=== PATIENT | female | born 1990 | race Asian ===

== ENCOUNTER 2020-10-07 12:06 | Emergency (ER) | payer SELFPAY ==
[2020-10-07] MEDS ORDERED: Dexamethasone 10 MG/ML SDV IVPUSH ONE (12:28)
[2020-10-07] MEDS ORDERED: Sodium Chloride 0.9% 2.5 ML Syringe FLUSH PRN (12:28)
[2020-10-07] MEDS ORDERED: Sodium Chloride 0.9% 10 ML Syringe FLUSH PRN (12:28)
[2020-10-07] MEDS ORDERED: Lactated Ringers 500 ML IV ONE (12:29)
[2020-10-07] MEDS ORDERED: Albuterol HFA 18 Gm Inhaler INH STA (12:31)
--- NOTE | 2020-10-07 13:24 | CR ---
Indication: Shortness of breath, COVID Technique: Chest 1 view Comparison: None Findings/Impression: Normal cardiomediastinal silhouette. Patchy opacity at the right lung base may represent atelectasis or infection. The left lung is clear. No effusion or pneumothorax. Osseous structures intact. Dictated by Serene Diehl MD @ Oct 07 2020 1:22PM Signed by Dr. Serene Diehl @ Oct 07 2020 1:23PM
[2020-10-07] MEDS ORDERED: guaiFENesin/Dextromethorphan 100-10 MG/5 ML Soln 10 ML Cup PO STA ×2 (13:33→13:51)
[2020-10-07 13:44] LABS: BLOOD UREA NITROGEN,BUN 4 mg/dL (7.0-18.0); CARBON DIOXIDE,CO2 25.3 mmol/L (21.0-32.0); CHLORIDE,CL 101 mmol/L (98-107); GLUCOSE RANDOM 95 mg/dL (74-106); POTASSIUM,K 3.5 mmol/L (3.5-5.1); SODIUM,NA 137 mmol/L (136-145)
--- NOTE | 2020-10-07 14:12 | EDM.PDOC ---
ED HPI GENERAL MEDICAL PROBLEM - General Chief Complaint: Respiratory Problem Stated Complaint: COVID POSITIVE Time Seen by Provider: 10/07/20 12:15 - History of Present Illness INITIAL COMMENTS - FREE TEXT/NARRATIVE: CHIEF COMPLAINT(S): Shortness of breath HISTORY OF PRESENT ILLNESS: This is a 30-year-old woman without any significant past medical history who was diagnosed with coronavirus approximately 7 days ago who comes to the emergency department with a chief complaint of shortness of breath. The patient states that for approximately 1 week now she has been experiencing Covid-like symptoms including cough, shortness of breath, and fever. She states that over the last 24 hours she states that her cough has gotten worse especially at night and is experiencing worsening shortness of breath. She states that she checked her pulse oximetry at home and it was in the mid 80s to lower 90s and that she got up out of the bed and felt better after a little bit of walking. She denies any chest pain and states that the last recorded fever was approximately 48 hours ago. She states that she is taking Tylenol, Motrin, and cough syrup [id number]. She denies any history of asthma but states that she may have borderline reactive airway disease. She denies any other medical history. REVIEW OF SYSTEMS: Constitutional: Denies fever, chills. Eyes: Denies eye pain Ears, Nose, Mouth, & Throat: Denies earache Cardiovascular: Denies chest pain Respiratory: Positive for nonproductive cough and shortness of breath. Gastrointestinal: Denies abdominal pain, nausea, vomiting, diarrhea, hematochezia. Genitourinary: Denies dysuria Skin:Denies a rash Neurological: Denies blurred vision Psychiatric: Denies depression PAST MEDICAL HISTORY: As per history of present illness and as reviewed below otherwise noncontributory. SURGICAL HISTORY: As per history of present illness and as reviewed below otherwise noncontributory. LMP: 2 weeks ago SOCIAL HISTORY: As per history of present illness and as reviewed below otherwise noncontributory. FAMILY HISTORY: As per history of present illness and as reviewed below otherwise noncontributory. EXAMINATION OF ORGAN SYSTEMS/BODY AREAS: Constitutional: Blood pressure is 136/85, heart rate 109, respiratory rate 20 with an oxygen saturation 94% on room air. Temperature 35.9 General: Young woman who appears to be in mild amount of respiratory distress. Intermittent coughing Psychiatric: Appropriate mood and affect. Eyes: No scleral icterus or conjunctival erythema ENMT: Moist mucous membranes. No pharyngeal erythema Cardiovascular: Tachycardic but regular no gallops, murmurs, or rubs. Bilateral upper extremity pulses symmetric and intact. No peripheral edema. No JVD. Respiratory: Lungs clear to auscultation bilaterally. No wheezes, rales, or r honchi. Appears to have mild increased work of breathing. No retractions. Speaking in full sentences. Gastrointestinal: Soft, non-tender, non-distended. Normoactive bowel sounds Genitourinary: No suprapubic tenderness Musculoskeletal: Normal range of motion. Skin: No lesions or abrasions. Neurological: Alert, GCS 15 MEDICAL DECISION MAKING AND COURSE IN THE ED WITH INTERPRETATION/REVIEW OF DIAGNOSTIC STUDIES: This is a 30-year-old man with coronavirus diagnosed approximately 7 days ago who comes to the emergency department with worsening cough and shortness of breath who is tachycardic and borderline hypoxic on room air. At this time will obtain a work-up including CBC, CMP, D-dimer, ferritin, and chest x-ray. Will obtain an EKG for screening purposes. We will provide the patient with a 500 cc bolus as the patient has had decreased p.o. intake and provide her with albuterol by MDI and 6 mg of dexamethasone given the pulse oximetry showing percentages in the 80s at home. We will place the patient on cardiac monitoring and pulse oximetry. Laboratory: CBC is unremarkable. D-dimer is elevated at 0.68. CMP reveals mild elevation in AST of 50 otherwise unremarkable. Ferritin is elevated at 557. Twelve-lead EKG interpreted by myself. Normal sinus rhythm at a rate of 99beats per minute. Normal axis. SC interval is 142ms. QRS duration is 81ms. ST segments are normal without elevations or depressions. No Q waves present. Hypertrophy not noted. No prior EKGs in our system interpretation: Normal sinus rhythm The radiological images were viewed by myself along with reading the report from the radiologist. Chest x-ray reveals normal cardiac silhouette with patchy opacity at the right lung base which may represent atelectasis or infection. Under evaluation, the patient's cough improved and she appeared to be more comfortable. I did discuss the results at this time and discussed that I like to get a CT of her chest to evaluate for PE. She was amenable to this plan. The radiological images were viewed by myself along with reading the report from the radiologist. CT thorax with PE protocol does not reveal any acute pulmonary embolism however there is a right lower lobe pneumonia. After the CT I did discuss the imaging with the patient. At this time she continued to remain normotensive and not hypoxic on room air. I discussed that at this time I like to start her on antibiotics for bacterial pneumonia. We will start the patient on cefdinir and azithromycin. I discussed with her that at this time she should continue to take the dexamethasone daily and to complete the course of antibiotics. I discussed that if she were to have any new or worsening symptoms she should return to the emergency department. She did express understanding and was amenable to discharge at this time. DISPOSITION: The patient was discharged home in stable condition. The patient will follow up with PCP within 1 to 2 days CONDITION: Fair PROCEDURES: None FINAL IMPRESSION(S)/DIAGNOSES: 1. Acute right lower lobe pneumonia and likely community-acquired pneumonia 2. Acute coronavirus infection Corey Garrido M.D. chest pressure Pain Score (Numeric/FACES): 3 - Related Data Allergies Allergy/AdvReac Type Severity Reaction Status Date / Time No Known Allergies Allergy Verified 10/07/20 12:12 Home Meds: Home Meds Azithromycin [Zithromax] 250 mg PO DAILY #4 tablet 10/07/20 [Rx] Cefdinir 300 mg PO BID #20 capsule 10/07/20 [Rx] dexAMETHasone [Dexamethasone] 6 mg PO DAILY #9 tablet 10/07/20 [Rx] Past Medical History - Past Health History Medical/Surgical History: Denies Medical/Surgical History - Infectious Disease History Infectious Disease History: Reports: None Social & Family History - Tobacco Use Tobacco Use Status *Q: Never Tobacco User - Caffeine Use Caffeine Use: Reports: Coffee - Recreational Drug Use Recreational Drug Use: No ED ROS GENERAL - Review of Systems Review Of Systems: See Below ED EXAM, GENERAL - Physical Exam Exam: See Below Course - Vital Signs Last Recorded V/S: Last Vital Signs Temp 36.4 C 10/07/20 16:20 Pulse 103 H 10/07/20 16:20 Resp 18 10/07/20 16:20 BP 114/74 10/07/20 16:20 Pulse Ox 95 10/07/20 16:20 - Orders/Labs/Meds Orders: Active Orders 24 hr Category Date Time Status Saline Lock Insert [OM.PC] Stat Oth 10/07/20 12:28 Ordered Labs: Laboratory Tests 10/07/20 10/07/20 10/07/20 Range/Units 12:49 12:49 12:49 WBC 3.14 L (4.0-11.0) K/uL RBC 4.34 (4.30-5.90) M/uL Hgb 13.1 (12.0-16.0) g/dL Hct 39.5 (36.0-46.0) % MCV 91.0 (80.0-98.0) fL MCH 30.2 (27.0-32.0) pg MCHC 33.2 (31.0-37.0) g/dL RDW Std Deviation 41.7 (28.0-62.0) fl RDW Coeff of Shun 12 (11.0-15.0) % Plt Count 152 (150-400) K/uL MPV 9.60 (7.40-12.00) fL Neut % (Auto) 74.5 (48.0-80.0) % Lymph % (Auto) 20.7 (16.0-40.0) % [place] % (Auto) 4.5 (0.0-15.0) % Eos % (Auto) 0.0 (0.0-7.0) % Baso % (Auto) 0.3 (0.0-1.5) % Neut # (Auto) 2.3 (1.4-5.7) K/uL Lymph # (Auto) 0.7 (0.6-2.4) K/uL [place] # (Auto) 0.1 (0.0-0.8) K/uL Eos # (Auto) 0.0 (0.0-0.7) K/uL Baso # (Auto) 0.0 (0.0-0.1) K/uL Nucleated RBC % 0.0 /100WBC Nucleated RBCs # 0 K/uL D-Dimer, Quantitative 0.68 H (0.0-0.50) mg/L FEU Sodium 137 (136-145) mmol/L Potassium 3.5 (3.5-5.1) mmol/L Chloride 101 (98-107) mmol/L Carbon Dioxide 25.3 (21.0-32.0) mmol/L BUN 4 L (7.0-18.0) mg/dL Creatinine 0.8 (0.6-1.0) mg/dL Est Cr Clr Drug Dosing 76.18 mL/min Estimated GFR (MDRD) > 60.0 ml/min Glucose 95 (74-106) mg/dL Calcium 8.7 (8.5-10.1) mg/dL Magnesium 2.1 (1.8-2.4) mg/dL Ferritin (8-252) ng/mL Total Bilirubin 0.5 (0.2-1.0) mg/dL AST 50 H (15-37) IU/L ALT 57 (14-63) IU/L Alkaline Phosphatase 60 (46-116) U/L Total Protein 7.9 (6.4-8.2) g/dL Albumin 4.0 (3.4-5.0) g/dL Globulin 3.9 (2.6-4.0) g/dL Albumin/Globulin Ratio 1.0 (0.9-1.6) 10/07/20 Range/Units 12:49 WBC (4.0-11.0) K/uL RBC (4.30-5.90) M/uL Hgb (12.0-16.0) g/dL Hct (36.0-46.0) % MCV (80.0-98.0) fL MCH (27.0-32.0) pg MCHC (31.0-37.0) g/dL RDW Std Deviation (28.0-62.0) fl RDW Coeff of Shun (11.0-15.0) % Plt Count (150-400) K/uL MPV (7.40-12.00) fL Neut % (Auto) (48.0-80.0) % Lymph % (Auto) (16.0-40.0) % [place] % (Auto) (0.0-15.0) % Eos % (Auto) (0.0-7.0) % Baso % (Auto) (0.0-1.5) % Neut # (Auto) (1.4-5.7) K/uL Lymph # (Auto) (0.6-2.4) K/uL [place] # (Auto) (0.0-0.8) K/uL Eos # (Auto) (0.0-0.7) K/uL Baso # (Auto) (0.0-0.1) K/uL Nucleated RBC % /100WBC Nucleated RBCs # K/uL D-Dimer, Quantitative (0.0-0.50) mg/L FEU Sodium (136-145) mmol/L Potassium (3.5-5.1) mmol/L Chloride (98-107) mmol/L Carbon Dioxide (21.0-32.0) mmol/L BUN (7.0-18.0) mg/dL Creatinine (0.6-1.0) mg/dL Est Cr Clr Drug Dosing mL/min Estimated GFR (MDRD) ml/min Glucose (74-106) mg/dL Calcium (8.5-10.1) mg/dL Magnesium (1.8-2.4) mg/dL Ferritin 557 H (8-252) ng/mL Total Bilirubin (0.2-1.0) mg/dL AST (15-37) IU/L ALT (14-63) IU/L Alkaline Phosphatase (46-116) U/L Total Protein (6.4-8.2) g/dL Albumin (3.4-5.0) g/dL Globulin (2.6-4.0) g/dL Albumin/Globulin Ratio (0.9-1.6) Meds: Medications Discontinued Medications Generic Name Dose Route Start Last Admin Trade Name Freq PRN Reason Stop Dose Admin Albuterol 2 gm 10/07/20 12:31 10/07/20 13:05 Ventolin Hfa INH 10/07/20 12:32 1 puff Q2H STA Administration Azithromycin 500 mg 10/07/20 15:59 10/07/20 16:10 Zithromax PO 10/07/20 16:00 500 mg ONETIME STA Administration Dexamethasone 6 mg 10/07/20 12:28 10/07/20 13:05 Decadron IVPUSH 10/07/20 12:29 6 mg ONETIME ONE Administration Guaifenesin/Dextromethorphan 10 ml 10/07/20 13:51 10/07/20 13:57 Robitussin Dm PO 10/07/20 13:52 10 ml ONETIME STA Administration Lactated Ringer's 500 mls @ 500 mls/hr 10/07/20 12:29 10/07/20 13:06 Ringers, Lactated IV 10/07/20 13:28 500 mls/hr .BOLUS ONE Administration Iopamidol 50 ml 10/07/20 14:29 10/07/20 14:42 Isovue Multipack-370 (76%) IVPUSH 10/07/20 14:30 50 ml ONETIME STA Administration Sodium Chloride 2.5 ml 10/07/20 12:28 10/07/20 13:06 Saline Flush FLUSH 2.5 ml ASDIRECTED PRN Administration Keep Vein Open Sodium Chloride 10 ml 10/07/20 12:28 10/07/20 13:06 Saline Flush FLUSH 10 ml ASDIRECTED PRN Administration Keep Vein Open Departure - Departure Time of Disposition: 16:02 Disposition: Home, Self-Care 01 Condition: Fair Clinical Impression: COVID-19 Pneumonia Qualifiers: Pneumonia type: due to unspecified organism Laterality: right Lung location: lower lobe of lung Qualified Code(s): J18.9 - Pneumonia, unspecified organism - Discharge Information *PRESCRIPTION DRUG MONITORING PROGRAM REVIEWED*: No *COPY OF PRESCRIPTION DRUG MONITORING REPORT IN PATIENT KI: No Prescriptions: Cefdinir 300 mg PO BID #20 capsule dexAMETHasone [Dexamethasone] 6 mg PO DAILY #9 tablet Azithromycin [Zithromax] 250 mg PO DAILY #4 tablet Instructions: COVID-19 Frequently Asked Questions, COVID-19, Community-Acquired Pneumonia, Adult, Prevent the Spread of COVID-19 if You Are Sick - [facility] Referrals: PCP,None [Primary Care Provider] - Forms: ED Department Discharge Additional Instructions: The patient is informed of any results of their evaluation and diagnostic workup and all questions are answered. They are given discharge instructions and return precautions. The patient is stable for discharge. The patient states they understand and agree with the plan and that they will return if their symptoms get worse or if they have any new concerns. The following information is given to patients seen in the emergency department who are being discharged to home. This information is to outline your options for follow-up care. We provide all patients seen in our emergency department with a follow-up referral. The need for follow-up, as well as the timing and circumstances, are variable depending upon the specifics of your emergency department visit. If you don't have a primary care physician on staff, we will provide you with a referral. We always advise you to contact your personal physician following an emergency department visit to inform them of the circumstance of the visit and for follow-up with them and/or the need for any referrals to a consulting specialist. The emergency department will also refer you to a specialist when appropriate. This referral assures that you have the opportunity for follow-up care with a specialist. All of these measure are taken in an effort to provide you with optimal care, which includes your follow-up. Under all circumstances we always encourage you to contact your private physician who remains a resource for coordinating your care. When calling for follow-up care, please make the office aware that this follow-up is from your recent emergency room visit. If for any reason you are refused follow-up, please contact the [facility] Emergency Department at and asked to speak to the emergency department charge nurse. Today your evaluated in the emergency department on an emergency basis. You were found to have a right lower lung pneumonia. Please take antibiotics as prescribed, use albuterol every 4 hours as needed, and dexamethasone. Please return to the emergency department if you have any new or worsening symptoms. Please follow-up with your primary care physician when within 2 to 3 days. [facility] - Primary Care [address] [place], [place] [id number] [address] [address] Sepsis Event Note (ED) - Evaluation Sepsis Screening Result: Possible Sepsis Risk - Focused Exam Vital Signs: Vital Signs Temp Pulse Resp BP Pulse Ox 10/07/20 16:20 36.4 C 103 H 18 114/74 95 10/07/20 13:58 102 H 20 99 10/07/20 13:10 101 H 20 121/80 95 10/07/20 12:13 35.9 C L 109 H 20 136/85 94 L - My Orders Last 24 Hours: My Active Orders 10/07/20 12:28 Saline Lock Insert [OM.PC] Stat - Assessment/Plan Last 24 Hours: My Active Orders 10/07/20 12:28 Saline Lock Insert [OM.PC] Stat
[2020-10-07] MEDS ORDERED: Iopamidol 755 MG/ML 500 ML Multipack Bottle IVPUSH STA (14:29)
--- NOTE | 2020-10-07 15:42 | CT ---
INDICATION: Shortness of breath, elevated D-dimer and positive COVID-19. COMPARISON: Chest radiograph from today. TECHNIQUE: CT examination of the chest was performed with the uneventful intravenous administration of 50 cc of Isovue 370 while 1 and 3 mm thick axial sections were obtained through the pulmonary arteries. Please note that all CT scans at this facility use dose modulation, iterative reconstruction, and/or weight-based dosing when appropriate to reduce radiation dose to as low as reasonably achievable. FINDINGS: : There is no sign of pulmonary embolism, with normal enhancement and branching of the pulmonary arteries. There is dense consolidation of the basilar segments of the right lower lobe, consistent with right lower lobe pneumonia. There is mild patchy infiltrates scattered throughout the basilar segments of the left lower lobe, nonspecific, but consistent with additional pneumonia. There is mild patchy infiltrate in the posterior aspect of both upper lobes, consistent with pneumonia. The findings are not strongly suggestive of COVID-19, but certainly could be from COVID-19. There is no sign of mediastinal or hilar mass or adenopathy. The heart is normal in appearance for the patient`s age, as are the aorta and other ascending great vessels. There is no sign of supraclavicular or axillary mass or adenopathy. The visualized superior liver is low in density from fatty infiltration and is otherwise normal in appearance. The visualized superior spleen is normal in appearance. The osseous structures are normal in appearance for the patient`s age. IMPRESSION: No sign of pulmonary embolism. Dense consolidation of the basilar segments of the right lower lobe most consistent with bacterial pneumonia. Patchy consolidation throughout the basilar segments of the left lower lobe, with additional patchy consolidation of the dependent portions of both upper lobes. Nonspecific, but suggestive of multifocal pneumonia. The findings are not typical of COVID-19, but COVID-19 cannot be excluded. Fatty infiltration of the liver. Please note that all CT scans at this facility use dose modulation, iterative reconstruction, and/or weight-based dosing when appropriate to reduce radiation dose to as low as reasonably achievable. Dictated by Kumar Jane MD @ Oct 07 2020 3:31PM Signed by Dr. Kumar Jane @ Oct 07 2020 3:40PM
[2020-10-07] MEDS ORDERED: Azithromycin 250 MG Tab PO STA (15:59)
== END 2020-10-07 16:20 | disposition home or self-care (01) ==
LOC: MW.ED 12:06
DX: U07.1 COVID-19 (principal); J12.89 Other viral pneumonia
CPT/HCPCS: 36415; 71045; 71275; 80053; 82728; 83735; 85025; 85379; 93005; 96374; 99285; A9270; J1100; J7120; Q9967; 93010; 99283; J3535-GY

== ENCOUNTER 2020-10-09 21:57 | Inpatient (IN) | payer SELFPAY ==
[2020-10-09] MEDS ORDERED: Albuterol HFA 18 Gm Inhaler ONE (22:15)
[2020-10-09] MEDS ORDERED: Albuterol 6.7 GM Inhaler INH ONE (22:16)
--- NOTE | 2020-10-09 22:24 | EDM.PDOC ---
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 2 days later she had some muscle aches and fatigue. She had shortness of breath starting days ago. That is increased since. She was seen is a patient 3 days ago and had infiltrates on her x-rays and CT but no blood clot. She arrived today with an oxygen saturation of 78% which is profoundly low. It required 100% nonrebreather to get her up to 92%. She still feels mildly short of breath. The patient is on dexamethasone at home and she also is using an inhaler but without a chamber. The patient has no history of respiratory trouble asthma bronchitis or COPD. Review of systems: As per history of present illness and below otherwise all systems reviewed and negative. Past medical history: As per history of present illness and as reviewed below otherwise noncontributory. Surgical history: As per history of present illness and as reviewed below otherwise noncontributory. Social history: No reported history of drug or alcohol abuse. Family history: As per history of present illness and as reviewed below otherwise noncontributory. Physical exam: Constitutional - well developed, well-nourished and in no acute distress HEENT - normocephalic, no evidence of trauma - external nose and mouth normal - no mass in neck and no JVD - mucosae moist EYES - full EOM, PERRL, no icterus - no evidence of inflammation, injection, or drainage Respiratory -minimal respiratory distress, equal bilateral expansion, lungsbreath sounds with rales in the bases Cardiovascular - Regular Rhythm with S1 and S2 appreciated and no murmur, gallop or rub. GI - abdomen soft without distension or organomegaly - normal bowel sounds - no guard or rebound Musculoskeletal no gross deformity of long bones or joints - no tenderness, swelling or edema Neurologic - Alert and oriented times four - CN II-XII grossly intact - motor sensory and coordination symmetrically normal Psychiatric - appropriate mood and affect with normal thought content Hematologic - No petechiae or purpura - mucosa appropriate color and sclera not pale - normal nail bed color and refill Integument - no rash or evidence of trauma - normal turgor Diagnostics: [] Therapeutics: [] Impression: [] Plan: [] Definitive disposition and diagnosis as appropriate pending reevaluation and review of above. lungs Pain Score (Numeric/FACES): 4 - Related Data Allergies Allergy/AdvReac Type Severity Reaction Status Date / Time No Known Allergies Allergy Verified 10/07/20 12:12 Home Meds: Home Meds Azithromycin [Zithromax] 250 mg PO DAILY #4 tablet 10/07/20 [Rx] Cefdinir 300 mg PO BID #20 capsule 10/07/20 [Rx] dexAMETHasone [Dexamethasone] 6 mg PO DAILY #9 tablet 10/07/20 [Rx] Past Medical History - Past Health History Medical/Surgical History: Denies Medical/Surgical History - Infectious Disease History Infectious Disease History: Reports: None Social & Family History - Caffeine Use Caffeine Use: Reports: Coffee ED ROS GENERAL - Review of Systems Review Of Systems: Comprehensive ROS is negative, except as noted in HPI. ED EXAM, GENERAL - Physical Exam Exam: See Below Free Text/Narrative:: My physical exam is in the HPI Course - Vital Signs Text/Narrative:: Patient had already been taking steroids and using an inhaler at home. She was using the chamber. We gave her 2 puffs with the chamber and try to wean her down to 5 L of nasal cannula but she did not tolerated and required nonrebreather to go back up to the satisfactory saturation. Discussed with and admitted to the hospital. Our Covid treatment protocol consulted and medications ordered. Orders placed for bed Dr. Harrell will assume care of the patient. Last Recorded V/S: Last Vital Signs Temp 36.4 C 10/09/20 22:16 Pulse 114 H 10/09/20 22:16 Resp 22 H 10/09/20 22:16 BP 134/86 10/09/20 22:16 Pulse Ox 93 L 10/09/20 22:16 - Orders/Labs/Meds Orders: Active Orders 24 hr Category Date Time Status RT Post Treatment Assessment [RC] Click to Edit Care 10/09/20 22:17 Active RT Pre-Treatment Assessment [RC] Click to Edit Care 10/09/20 22:17 Active Meds: Medications Discontinued Medications Generic Name Dose Route Start Last Admin Trade Name Freq PRN Reason Stop Dose Admin Albuterol 18 gm 11/26/20 22:16 10/09/20 22:22 Proventil Hfa INH 10/09/20 22:17 1 puff ONETIME ONE Administration Albuterol Confirm 10/09/20 22:15 10/09/20 22:21 Ventolin Hfa Administered 10/09/20 22:16 Not Given Dose 18 gm .ROUTE .STK-MED ONE Dexamethasone 10 mg 10/09/20 22:31 Decadron IVPUSH 10/09/20 22:32 ONETIME ONE Remdesivir 200 mg/ Sodium 250 mls @ 250 mls/hr 10/09/20 22:33 Chloride IV 10/09/20 22:34 ONETIME ONE Departure - Departure Time of Disposition: 22:52 Disposition: Admitted As Inpatient 64 Condition: Good, Fair Clinical Impression: Bilateral pneumonia, COVID-19 - Discharge Information Referrals: PCP,None [Primary Care Provider] - Forms: ED Department Discharge Sepsis Event Note (ED) - Focused Exam Vital Signs: Vital Signs Temp Pulse Resp BP Pulse Ox 10/09/20 22:16 36.4 C 114 H 22 H 134/86 93 L - My Orders Last 24 Hours: My Active Orders 10/09/20 22:17 RT Post Treatment Assessment [RC] Click to Edit RT Pre-Treatment Assessment [RC] Click to Edit - Assessment/Plan Last 24 Hours: My Active Orders 10/09/20 22:17 RT Post Treatment Assessment [RC] Click to Edit RT Pre-Treatment Assessment [RC] Click to Edit
[2020-10-09] MEDS ORDERED: Dexamethasone 10 MG/ML SDV IVPUSH ONE (22:31)
[2020-10-09] MEDS ORDERED: REMDESIVIR 200 MG in Sodium Chloride 0.9% 250 ML IV ONE (22:33)
[2020-10-09] MEDS ORDERED: Ondansetron 4 MG/2 ML SDV IVPUSH PRN (23:59)
[2020-10-10 00:43] LABS: BLOOD UREA NITROGEN,BUN 7 mg/dL (7.0-18.0); CARBON DIOXIDE,CO2 25.4 mmol/L (21.0-32.0); CHLORIDE,CL 102 mmol/L (98-107); GLUCOSE RANDOM 132 mg/dL (74-106); POTASSIUM,K 3.7 mmol/L (3.5-5.1); SODIUM,NA 139 mmol/L (136-145)
[2020-10-10] MEDS ORDERED: Phosphorus #1 250 MG Tab PO ONE (00:53)
[2020-10-10] MEDS ORDERED: Albuterol/Ipratropium 3.0-0.5 MG/3 ML Neb Soln NEB PRN (01:13)
[2020-10-10] MEDS: Albuterol/Ipratropium 4 GM Inhalation Spray INH SCH ×7 (01:27→23:53)
[2020-10-10] MEDS: Levofloxacin/Dextrose 5%-Water 750 MG in Premix Bag 1 BAG IV SCH (01:28)
[2020-10-10 06:50] LABS: BLOOD UREA NITROGEN,BUN 7 mg/dL (7.0-18.0); CHLORIDE,CL 104 mmol/L (98-107); GLUCOSE RANDOM 142 mg/dL (74-106); POTASSIUM,K 3.6 mmol/L (3.5-5.1); SODIUM,NA 140 mmol/L (136-145)
--- NOTE | 2020-10-10 07:43 | PCM.HP.2 ---
<LouVahid funez - Last Filed: 10/10/20 14:50> H&P History of Present Illness - General Date of Service: 10/10/20 Admit Problem/Dx: Admission Diagnosis/Problem Admission Diagnosis/Problem Bilateral pneumonia - History of Present Illness Initial Comments - Free Text/Narative: 30 yr old female admitted for COVID infection which was diagnosed days prior. Patient initially felt fine but as time progressed developed muscle aches and fatigue whioch proressed to significant shortness of breath which has increased. Patient was seen by a medical provider 3 days ago and had a c-xray performed whi ch showed lung infiltrates. Patient presented to the ED with an oxygen saturation of 78% and was placed on 100% nonrebreather, which raised o2 sats to 92%. Patient on admission states SOB. Patients o2 saturations go down significancy with movement and soeaking. O2 sats stably with prone positioning and rest. Patient has been taking dexamethasone at home and has also been using an inhaler. PMH negative for asthma, copd. No other PMH noted lungs Pain Score (Numeric/FACES): 4 - Related Data Allergies/Adverse Reactions: Allergies Allergy/AdvReac Type Severity Reaction Status Date / Time No Known Allergies Allergy Verified 10/10/20 00:09 Home Medications: Home Meds Azithromycin [Zithromax] 250 mg PO DAILY #4 tablet 10/07/20 [Rx] Cefdinir 300 mg PO BID #20 capsule 10/07/20 [Rx] dexAMETHasone [Dexamethasone] 6 mg PO DAILY #9 tablet 10/07/20 [Rx] Past Medical History - Past Health History Medical/Surgical History: Denies Medical/Surgical History HEENT History: Reports: None Cardiovascular History: Reports: None Respiratory History: Reports: None Gastrointestinal History: Reports: None Genitourinary History: Reports: None 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 Musculoskeletal History: Reports: None Neurological History: Reports: None Psychiatric History: Reports: None Endocrine/Metabolic History: Reports: None Hematologic History: Reports: None Immunologic History: Reports: None Oncologic (Cancer) History: Reports: None Dermatologic History: Reports: None - Infectious Disease History Infectious Disease History: Reports: Other (See Below) Other Infectious Disease History: COVID - Past Surgical History Head Surgeries/Procedures: Reports: None Social & Family History - Family History Family Medical History: No Pertinent Family History - Tobacco Use Tobacco Use Status *Q: Never Tobacco User Used Tobacco, but Quit: No Second Hand Smoke Exposure: No - Caffeine Use Caffeine Use: Reports: Coffee, Tea - Recreational Drug Use Recreational Drug Use: No H&P Review of Systems - Review of Systems: Review Of Systems: See Below General: Reports: Weakness. Denies: Fever, Chills Pulmonary: Reports: Shortness of Breath, Cough. Denies: Wheezing Cardiovascular: Reports: Dyspnea on Exertion. Denies: Chest Pain, Palpitations Gastrointestinal: Denies: Abdominal Pain, Nausea, Vomiting Neurological: Denies: Confusion, Dizziness, Headache Exam - Exam Exam: See Below - Vital Signs Vital Signs: Last Vital Signs Temp 97.5 F 10/10/20 04:27 Pulse 90 10/10/20 02:00 Resp 20 10/10/20 04:27 BP 122/77 10/10/20 04:27 Pulse Ox 91 L 10/10/20 04:27 Weight: 78.698 kg - Exam General: Alert, Oriented Lungs: Clear to Auscultation, Normal Respiratory Effort Cardiovascular: Regular Rate, Regular Rhythm GI/Abdominal Exam: Normal Bowel Sounds, Soft, Non-Tender Extremities: No Pedal Edema Neuro Extensive - Mental Status: Alert, Oriented x3 - Patient Data Lab Results Last 24 hrs: Laboratory Results - last 24 hr 10/09/20 10/09/20 10/09/20 Range/Units 22:15 22:15 22:15 WBC 7.38 (4.0-11.0) K/uL RBC 4.30 (4.30-5.90) M/uL Hgb 12.9 (12.0-16.0) g/dL Hct 39.4 (36.0-46.0) % MCV 91.6 (80.0-98.0) fL MCH 30.0 (27.0-32.0) pg MCHC 32.7 (31.0-37.0) g/dL RDW Std Deviation 42.4 (28.0-62.0) fl RDW Coeff of Shun 13 (11.0-15.0) % Plt Count 227 (150-400) K/uL MPV 9.70 (7.40-12.00) fL Neut % (Auto) 88.0 H (48.0-80.0) % Lymph % (Auto) 8.5 L (16.0-40.0) % [place] % (Auto) 3.5 (0.0-15.0) % Eos % (Auto) 0.0 (0.0-7.0) % Baso % (Auto) 0.0 (0.0-1.5) % Neut # (Auto) 6.5 H (1.4-5.7) K/uL Lymph # (Auto) 0.6 (0.6-2.4) K/uL [place] # (Auto) 0.3 (0.0-0.8) K/uL Eos # (Auto) 0.0 (0.0-0.7) K/uL Baso # (Auto) 0.0 (0.0-0.1) K/uL Nucleated RBC % 0.0 /100WBC Nucleated RBCs # 0 K/uL D-Dimer, Quantitative 0.78 H (0.0-0.50) mg/L FEU Sodium 139 (136-145) mmol/L Potassium 3.7 (3.5-5.1) mmol/L Chloride 102 (98-107) mmol/L Carbon Dioxide 25.4 (21.0-32.0) mmol/L BUN 7 (7.0-18.0) mg/dL Creatinine 0.8 (0.6-1.0) mg/dL Est Cr Clr Drug Dosing 76.18 mL/min Estimated GFR (MDRD) > 60.0 ml/min Glucose 132 H (74-106) mg/dL Calcium 8.6 (8.5-10.1) mg/dL Phosphorus 2.2 L (2.6-4.7) mg/dL Magnesium 1.9 (1.8-2.4) mg/dL Ferritin (8-252) ng/mL Total Bilirubin 0.4 (0.2-1.0) mg/dL AST 49 H (15-37) IU/L ALT 60 (14-63) IU/L Alkaline Phosphatase 61 (46-116) U/L Lactate Dehydrogenase (81-234) U/L Total Protein 7.9 (6.4-8.2) g/dL Albumin 3.6 (3.4-5.0) g/dL Globulin 4.3 H (2.6-4.0) g/dL Albumin/Globulin Ratio 0.8 L (0.9-1.6) Blood Type 10/09/20 10/09/20 10/10/20 Range/Units 22:15 22:15 00:43 WBC (4.0-11.0) K/uL RBC (4.30-5.90) M/uL Hgb (12.0-16.0) g/dL Hct (36.0-46.0) % MCV (80.0-98.0) fL MCH (27.0-32.0) pg MCHC (31.0-37.0) g/dL RDW Std Deviation (28.0-62.0) fl RDW Coeff of Shun (11.0-15.0) % Plt Count (150-400) K/uL MPV (7.40-12.00) fL Neut % (Auto) (48.0-80.0) % Lymph % (Auto) (16.0-40.0) % [place] % (Auto) (0.0-15.0) % Eos % (Auto) (0.0-7.0) % Baso % (Auto) (0.0-1.5) % Neut # (Auto) (1.4-5.7) K/uL Lymph # (Auto) (0.6-2.4) K/uL [place] # (Auto) (0.0-0.8) K/uL Eos # (Auto) (0.0-0.7) K/uL Baso # (Auto) (0.0-0.1) K/uL Nucleated RBC % /100WBC Nucleated RBCs # K/uL D-Dimer, Quantitative (0.0-0.50) mg/L FEU Sodium (136-145) mmol/L Potassium (3.5-5.1) mmol/L Chloride (98-107) mmol/L Carbon Dioxide (21.0-32.0) mmol/L BUN (7.0-18.0) mg/dL Creatinine (0.6-1.0) mg/dL Est Cr Clr Drug Dosing mL/min Estimated GFR (MDRD) ml/min Glucose (74-106) mg/dL Calcium (8.5-10.1) mg/dL Phosphorus (2.6-4.7) mg/dL Magnesium (1.8-2.4) mg/dL Ferritin 709 H (8-252) ng/mL Total Bilirubin (0.2-1.0) mg/dL AST (15-37) IU/L ALT (14-63) IU/L Alkaline Phosphatase (46-116) U/L Lactate Dehydrogenase 523 H (81-234) U/L Total Protein (6.4-8.2) g/dL Albumin (3.4-5.0) g/dL Globulin (2.6-4.0) g/dL Albumin/Globulin Ratio (0.9-1.6) Blood Type AB POSITIVE 10/10/20 Range/Units 05:52 WBC (4.0-11.0) K/uL RBC (4.30-5.90) M/uL Hgb (12.0-16.0) g/dL Hct (36.0-46.0) % MCV (80.0-98.0) fL MCH (27.0-32.0) pg MCHC (31.0-37.0) g/dL RDW Std Deviation (28.0-62.0) fl RDW Coeff of Shun (11.0-15.0) % Plt Count (150-400) K/uL MPV (7.40-12.00) fL Neut % (Auto) (48.0-80.0) % Lymph % (Auto) (16.0-40.0) % [place] % (Auto) (0.0-15.0) % Eos % (Auto) (0.0-7.0) % Baso % (Auto) (0.0-1.5) % Neut # (Auto) (1.4-5.7) K/uL Lymph # (Auto) (0.6-2.4) K/uL [place] # (Auto) (0.0-0.8) K/uL Eos # (Auto) (0.0-0.7) K/uL Baso # (Auto) (0.0-0.1) K/uL Nucleated RBC % /100WBC Nucleated RBCs # K/uL D-Dimer, Quantitative (0.0-0.50) mg/L FEU Sodium 140 (136-145) mmol/L Potassium 3.6 (3.5-5.1) mmol/L Chloride 104 (98-107) mmol/L Carbon Dioxide 26.0 (21.0-32.0) mmol/L BUN 7 (7.0-18.0) mg/dL Creatinine 0.6 (0.6-1.0) mg/dL Est Cr Clr Drug Dosing 106.46 mL/min Estimated GFR (MDRD) > 60.0 ml/min Glucose 142 H (74-106) mg/dL Calcium 8.4 L (8.5-10.1) mg/dL Phosphorus 3.4 (2.6-4.7) mg/dL Magnesium 2.0 (1.8-2.4) mg/dL Ferritin (8-252) ng/mL Total Bilirubin 0.4 (0.2-1.0) mg/dL AST 36 (15-37) IU/L ALT 47 (14-63) IU/L Alkaline Phosphatase 51 (46-116) U/L Lactate Dehydrogenase (81-234) U/L Total Protein 7.0 (6.4-8.2) g/dL Albumin 3.1 L (3.4-5.0) g/dL Globulin 3.9 (2.6-4.0) g/dL Albumin/Globulin Ratio 0.8 L (0.9-1.6) Blood Type Result Diagrams: 10/09/20 22:15 10/10/20 05:52 Sepsis Event Note - Evaluation Sepsis Screening Result: No Definite Risk - Focused Exam Vital Signs: Vital Signs Temp Pulse Resp BP Pulse Ox 10/10/20 04:27 97.5 F 20 122/77 91 L 10/10/20 02:00 90 18 93 L 10/09/20 23:40 96.8 F L 85 18 117/74 91 L 10/09/20 23:17 96.7 F L 95 22 H 123/81 96 10/09/20 23:00 96.7 F L 96 22 H 122/66 96 10/09/20 22:16 97.6 F 114 H 22 H 134/86 93 L Problem List Initiated/Reviewed/Updated: Yes Orders Last 24hrs: Active Orders 24 hr Category Date Time Status Admission Status [Patient Status] [ADT] Stat ADT 10/09/20 22:50 Active Ambulate [RC] ASDIRECTED Care 10/09/20 23:59 Active Oxygen Therapy [RC] PRN Care 10/09/20 23:59 Active Pulse Oximetry [RC] PRN Care 10/10/20 00:00 Active RT Aerosol Therapy [RC] ASDIRECTED Care 10/10/20 01:13 Active RT Post Treatment Assessment [RC] Click to Edit Care 10/09/20 22:17 Active RT Post Treatment Assessment [RC] Click to Edit Care 10/10/20 00:04 Active RT Pre-Treatment Assessment [RC] Click to Edit Care 10/09/20 22:17 Active RT Pre-Treatment Assessment [RC] Click to Edit Care 10/10/20 00:04 Active VTE/DVT Education [RC] PER UNIT ROUTINE Care 10/09/20 23:59 Active Vital Signs [RC] Q4H Care 10/09/20 23:59 Active Regular Diet [DIET] Diet 10/11/20 Breakfast Active ABO/RH TYPE [BBK] Routine Lab 10/10/20 00:43 Results CBC WITH AUTO DIFF [HEME] AM Lab 10/11/20 05:11 Ordered FRESH FROZEN PLASMA [BBK] Routine Lab 10/10/20 00:43 Results Albuterol/Ipratropium [Combivent Respimat] Med 10/10/20 00:15 Active See Dose Instructions INH Q4H Albuterol/Ipratropium [DuoNeb 3.0-0.5 MG/3 ML] Med 10/10/20 01:13 Active 3 ml NEB Q4HRRT PRN Cholecalciferol (Vitamin D3) [Vitamin D3] Med 10/10/20 09:00 Active 20 mcg PO DAILY Enoxaparin [Lovenox] Med 10/10/20 09:00 Active 40 mg SUBCUT BID Levofloxacin/Dextrose 5%-Water [Levaquin in D5W 750 MG/ Med 10/10/20 00:15 Active 150 ML] 750 mg Premix Bag 1 bag IV Q24H Ondansetron [Zofran] Med 10/09/20 23:59 Active 4 mg IVPUSH Q4H PRN Remdesivir 100 mg Med 10/10/20 09:00 Active Sodium Chloride 0.9% [Normal Saline] 100 ml IV Q24H dexAMETHasone Med 10/10/20 09:00 Active 6 mg PO DAILY Transfuse Fresh Frozen Plasma [COMM] Routine Oth 10/10/20 01:13 Ordered Resuscitation Status Routine Resus Stat 10/09/20 23:59 Ordered Medication Orders Albuterol/Ipratropium (Combivent Respimat) 0 gm INH Q4H [facility] Last Admin: 10/10/20 04:26 Dose: 1 puff Documented by: Admin: 10/10/20 01:27 Dose: 1 puff Documented by: ISABEL Albuterol/Ipratropium (Duoneb 3.0-0.5 Mg/3 Ml) 3 ml NEB Q4HRRT PRN PRN Reason: Shortness of Breath Cholecalciferol (Vitamin D3) 20 mcg PO DAILY [facility] Dexamethasone (Dexamethasone) 6 mg PO DAILY [facility] Enoxaparin Sodium (Lovenox) 40 mg SUBCUT BID [facility] Remdesivir 100 mg/ Sodium (Chloride) 100 mls @ 100 mls/hr IV Q24H [facility] Stop: 10/13/20 09:59 Levofloxacin/Dextrose 750 mg/ (Premix) 150 mls @ 100 mls/hr IV Q24H [facility] Last Admin: 10/10/20 01:28 Dose: 100 mls/hr Documented by: ISABEL Ondansetron HCl (Zofran) 4 mg IVPUSH Q4H PRN PRN Reason: Nausea/Vomiting Assessment/Plan Comment:: COVID-19 infection Remdesivir 100mg QD, dexamethasone 6mg QD, Combivent, encourage prone positioning, incentive spirometry, Lovenox 40mg QD, Levaquin 750mg QD, Convalescent plasma <Neil Gamezoria - Last Filed: 10/10/20 22:52> H&P History of Present Illness - General Admit Problem/Dx: Admission Diagnosis/Problem Admission Diagnosis/Problem Bilateral pneumonia Exam - Vital Signs Vital Signs: Last Vital Signs Temp 37.9 C 10/10/20 20:37 Pulse 90 10/10/20 02:00 Resp 18 10/10/20 20:37 BP 119/78 10/10/20 20:37 Pulse Ox 91 L 10/10/20 20:37 - Patient Data Lab Results Last 24 hrs: Laboratory Results - last 24 hr 10/09/20 10/09/20 10/09/20 Range/Units 22:15 22:15 22:15 WBC 7.38 (4.0-11.0) K/uL RBC 4.30 (4.30-5.90) M/uL Hgb 12.9 (12.0-16.0) g/dL Hct 39.4 (36.0-46.0) % MCV 91.6 (80.0-98.0) fL MCH 30.0 (27.0-32.0) pg MCHC 32.7 (31.0-37.0) g/dL RDW Std Deviation 42.4 (28.0-62.0) fl RDW Coeff of Shun 13 (11.0-15.0) % Plt Count 227 (150-400) K/uL MPV 9.70 (7.40-12.00) fL Neut % (Auto) 88.0 H (48.0-80.0) % Lymph % (Auto) 8.5 L (16.0-40.0) % [place] % (Auto) 3.5 (0.0-15.0) % Eos % (Auto) 0.0 (0.0-7.0) % Baso % (Auto) 0.0 (0.0-1.5) % Neut # (Auto) 6.5 H (1.4-5.7) K/uL Lymph # (Auto) 0.6 (0.6-2.4) K/uL [place] # (Auto) 0.3 (0.0-0.8) K/uL Eos # (Auto) 0.0 (0.0-0.7) K/uL Baso # (Auto) 0.0 (0.0-0.1) K/uL Nucleated RBC % 0.0 /100WBC Nucleated RBCs # 0 K/uL D-Dimer, Quantitative 0.78 H (0.0-0.50) mg/L FEU Sodium 139 (136-145) mmol/L Potassium 3.7 (3.5-5.1) mmol/L Chloride 102 (98-107) mmol/L Carbon Dioxide 25.4 (21.0-32.0) mmol/L BUN 7 (7.0-18.0) mg/dL Creatinine 0.8 (0.6-1.0) mg/dL Est Cr Clr Drug Dosing 76.18 mL/min Estimated GFR (MDRD) > 60.0 ml/min Glucose 132 H (74-106) mg/dL Calcium 8.6 (8.5-10.1) mg/dL Phosphorus 2.2 L (2.6-4.7) mg/dL Magnesium 1.9 (1.8-2.4) mg/dL Ferritin (8-252) ng/mL Total Bilirubin 0.4 (0.2-1.0) mg/dL AST 49 H (15-37) IU/L ALT 60 (14-63) IU/L Alkaline Phosphatase 61 (46-116) U/L Lactate Dehydrogenase (81-234) U/L Total Protein 7.9 (6.4-8.2) g/dL Albumin 3.6 (3.4-5.0) g/dL Globulin 4.3 H (2.6-4.0) g/dL Albumin/Globulin Ratio 0.8 L (0.9-1.6) Blood Type 10/09/20 10/09/20 10/10/20 Range/Units 22:15 22:15 00:43 WBC (4.0-11.0) K/uL RBC (4.30-5.90) M/uL Hgb (12.0-16.0) g/dL Hct (36.0-46.0) % MCV (80.0-98.0) fL MCH (27.0-32.0) pg MCHC (31.0-37.0) g/dL RDW Std Deviation (28.0-62.0) fl RDW Coeff of Shun (11.0-15.0) % Plt Count (150-400) K/uL MPV (7.40-12.00) fL Neut % (Auto) (48.0-80.0) % Lymph % (Auto) (16.0-40.0) % [place] % (Auto) (0.0-15.0) % Eos % (Auto) (0.0-7.0) % Baso % (Auto) (0.0-1.5) % Neut # (Auto) (1.4-5.7) K/uL Lymph # (Auto) (0.6-2.4) K/uL [place] # (Auto) (0.0-0.8) K/uL Eos # (Auto) (0.0-0.7) K/uL Baso # (Auto) (0.0-0.1) K/uL Nucleated RBC % /100WBC Nucleated RBCs # K/uL D-Dimer, Quantitative (0.0-0.50) mg/L FEU Sodium (136-145) mmol/L Potassium (3.5-5.1) mmol/L Chloride (98-107) mmol/L Carbon Dioxide (21.0-32.0) mmol/L BUN (7.0-18.0) mg/dL Creatinine (0.6-1.0) mg/dL Est Cr Clr Drug Dosing mL/min Estimated GFR (MDRD) ml/min Glucose (74-106) mg/dL Calcium (8.5-10.1) mg/dL Phosphorus (2.6-4.7) mg/dL Magnesium (1.8-2.4) mg/dL Ferritin 709 H (8-252) ng/mL Total Bilirubin (0.2-1.0) mg/dL AST (15-37) IU/L ALT (14-63) IU/L Alkaline Phosphatase (46-116) U/L Lactate Dehydrogenase 523 H (81-234) U/L Total Protein (6.4-8.2) g/dL Albumin (3.4-5.0) g/dL Globulin (2.6-4.0) g/dL Albumin/Globulin Ratio (0.9-1.6) Blood Type AB POSITIVE 10/10/20 10/10/20 Range/Units 05:52 19:10 WBC 5.05 (4.0-11.0) K/uL RBC 3.94 L (4.30-5.90) M/uL Hgb 11.7 L (12.0-16.0) g/dL Hct 36.0 (36.0-46.0) % MCV 91.4 (80.0-98.0) fL MCH 29.7 (27.0-32.0) pg MCHC 32.5 (31.0-37.0) g/dL RDW Std Deviation 42.8 (28.0-62.0) fl RDW Coeff of Shun 13 (11.0-15.0) % Plt Count 229 (150-400) K/uL MPV 9.40 (7.40-12.00) fL Neut % (Auto) 83.7 H (48.0-80.0) % Lymph % (Auto) 12.7 L (16.0-40.0) % [place] % (Auto) 3.4 (0.0-15.0) % Eos % (Auto) 0.0 (0.0-7.0) % Baso % (Auto) 0.2 (0.0-1.5) % Neut # (Auto) 4.2 (1.4-5.7) K/uL Lymph # (Auto) 0.6 (0.6-2.4) K/uL [place] # (Auto) 0.2 (0.0-0.8) K/uL Eos # (Auto) 0.0 (0.0-0.7) K/uL Baso # (Auto) 0.0 (0.0-0.1) K/uL Nucleated RBC % 0.0 /100WBC Nucleated RBCs # 0 K/uL D-Dimer, Quantitative (0.0-0.50) mg/L FEU Sodium 140 (136-145) mmol/L Potassium 3.6 (3.5-5.1) mmol/L Chloride 104 (98-107) mmol/L Carbon Dioxide 26.0 (21.0-32.0) mmol/L BUN 7 (7.0-18.0) mg/dL Creatinine 0.6 (0.6-1.0) mg/dL Est Cr Clr Drug Dosing 106.46 mL/min Estimated GFR (MDRD) > 60.0 ml/min Glucose 142 H (74-106) mg/dL Calcium 8.4 L (8.5-10.1) mg/dL Phosphorus 3.4 (2.6-4.7) mg/dL Magnesium 2.0 (1.8-2.4) mg/dL Ferritin (8-252) ng/mL Total Bilirubin 0.4 (0.2-1.0) mg/dL AST 36 (15-37) IU/L ALT 47 (14-63) IU/L Alkaline Phosphatase 51 (46-116) U/L Lactate Dehydrogenase (81-234) U/L Total Protein 7.0 (6.4-8.2) g/dL Albumin 3.1 L (3.4-5.0) g/dL Globulin 3.9 (2.6-4.0) g/dL Albumin/Globulin Ratio 0.8 L (0.9-1.6) Blood Type Result Diagrams: 10/10/20 19:10 10/10/20 05:52 Sepsis Event Note - Focused Exam Vital Signs: Vital Signs Temp Temp Resp BP Pulse Ox 10/10/20 20:37 37.9 C 18 119/78 91 L 10/10/20 20:30 37.9 C 10/10/20 17:55 37.8 C 10/10/20 17:00 37.8 C 17 112/78 98 10/10/20 13:50 94 L 10/10/20 13:00 37.1 C 18 113/62 86 L Orders Last 24hrs: Active Orders 24 hr Category Date Time Status Admission Status [Patient Status] [ADT] Stat ADT 10/09/20 22:50 Active Ambulate [RC] ASDIRECTED Care 10/09/20 23:59 Active Incentive Spirometry [RT Incentive Spirometry] [RC] Care 10/10/20 13:38 Active Q2HWA Oxygen Therapy [RC] PRN Care 10/09/20 23:59 Active Pulse Oximetry [RC] PRN Care 10/10/20 00:00 Active RT Aerosol Therapy [RC] ASDIRECTED Care 10/10/20 01:13 Active RT Post Treatment Assessment [RC] Click to Edit Care 10/09/20 22:17 Active RT Post Treatment Assessment [RC] Click to Edit Care 10/10/20 00:04 Active RT Pre-Treatment Assessment [RC] Click to Edit Care 10/09/20 22:17 Active RT Pre-Treatment Assessment [RC] Click to Edit Care 10/10/20 00:04 Active VTE/DVT Education [RC] PER UNIT ROUTINE Care 10/09/20 23:59 Active Vital Signs [RC] Q4H Care 10/09/20 23:59 Active Regular Diet [DIET] Diet 10/10/20 Dinner Active Regular Diet [DIET] Diet 10/11/20 Breakfast Active ABO/RH TYPE [BBK] Routine Lab 10/10/20 00:43 Results CBC WITH AUTO DIFF [HEME] AM Lab 10/11/20 05:11 Ordered CMP [COMPREHENSIVE METABOLIC PN,CMP] [CHEM] AM Lab 10/11/20 05:11 Ordered CRP [C-REACTIVE PROTEIN] [CHEM] AM Lab 10/11/20 05:11 Ordered FERRITIN [CHEM] AM Lab 10/11/20 05:11 Ordered FRESH FROZEN PLASMA [BBK] Routine Lab 10/10/20 00:43 Results LACTATE DEHYDROGENASE,LDH [CHEM] AM Lab 10/11/20 05:11 Ordered Acetaminophen [TylenoL] Med 10/10/20 17:27 Active 650 mg PO Q4H PRN Albuterol/Ipratropium [Combivent Respimat] Med 10/10/20 00:15 Active See Dose Instructions INH Q4H Albuterol/Ipratropium [DuoNeb 3.0-0.5 MG/3 ML] Med 10/10/20 01:13 Active 3 ml NEB Q4HRRT PRN Benzocaine/Cetylpyrd/Menthol [Cepacol Sore Throat] Med 10/10/20 08:48 Active 1 lozenge MUCMEM Q4HR PRN Cholecalciferol (Vitamin D3) [Vitamin D3] Med 10/10/20 09:00 Active 20 mcg PO DAILY Codeine/guaiFENesin [Robitussin AC] Med 10/10/20 08:45 Active 5 ml PO Q4H PRN Enoxaparin [Lovenox] Med 10/10/20 09:00 Active 40 mg SUBCUT BID Ibuprofen [Motrin] Med 10/10/20 17:27 Active 200 mg PO Q4H PRN Levofloxacin/Dextrose 5%-Water [Levaquin in D5W 750 MG/ Med 10/10/20 00:15 Active 150 ML] 750 mg Premix Bag 1 bag IV Q24H Ondansetron [Zofran] Med 10/09/20 23:59 Active 4 mg IVPUSH Q4H PRN Remdesivir 100 mg Med 10/10/20 23:00 Active Sodium Chloride 0.9% [Normal Saline] 100 ml IV Q24H Sodium Chloride 0.65% [[place] Nasal Herreid] Med 10/10/20 22:50 Ordered 1 ml KASSIDY Q2H PRN dexAMETHasone Med 10/10/20 09:00 Active 6 mg PO DAILY Transfuse Fresh Frozen Plasma [COMM] Routine Oth 10/10/20 01:13 Ordered Resuscitation Status Routine Resus Stat 10/09/20 23:59 Ordered Medication Orders Acetaminophen (Tylenol) 650 mg PO Q4H PRN PRN Reason: Pain/Fever Albuterol/Ipratropium (Combivent Respimat) 0 gm INH Q4H [facility] Last Admin: 10/10/20 21:07 Dose: 1 puff Documented by: Admin: 10/10/20 17:10 Dose: 1 puff Documented by: Admin: 10/10/20 13:04 Dose: 1 puff Documented by: Admin: 10/10/20 08:35 Dose: 1 puff Documented by: Admin: 10/10/20 04:26 Dose: 1 puff Documented by: Admin: 10/10/20 01:27 Dose: 1 puff Documented by: ISABEL Albuterol/Ipratropium (Duoneb 3.0-0.5 Mg/3 Ml) 3 ml NEB Q4HRRT PRN PRN Reason: Shortness of Breath Last Admin: 10/10/20 13:06 Dose: 3 ml Documented by: JOAQUIM Benzocaine/Menthol (Cepacol Sore Throat) 1 lozenge MUCMEM Q4HR PRN PRN Reason: Sore Throat Last Admin: 10/10/20 22:31 Dose: 1 lozenge Documented by: Admin: 10/10/20 17:11 Dose: 1 lozenge Documented by: Admin: 10/10/20 13:05 Dose: 1 lozenge Documented by: Admin: 10/10/20 09:02 Dose: 1 lozenge Documented by: JOAQUIM Cholecalciferol (Vitamin D3) 20 mcg PO DAILY [facility] Last Admin: 10/10/20 08:36 Dose: 20 mcg Documented by: JOAQUIM Dexamethasone (Dexamethasone) 6 mg PO DAILY [facility] Last Admin: 10/10/20 08:36 Dose: 6 mg Documented by: JOAQUIM Enoxaparin Sodium (Lovenox) 40 mg SUBCUT BID [facility] Last Admin: 10/10/20 20:30 Dose: 40 mg Documented by: Admin: 10/10/20 08:38 Dose: 40 mg Documented by: JOAQUIM Guaifenesin/Codeine Phosphate (Robitussin Ac) 5 ml PO Q4H PRN PRN Reason: Cough Last Admin: 10/10/20 22:30 Dose: 5 ml Documented by: Admin: 10/10/20 17:11 Dose: 5 ml Documented by: Admin: 10/10/20 13:05 Dose: 5 ml Documented by: Admin: 10/10/20 09:01 Dose: 5 ml Documented by: JOAQUIM Remdesivir 100 mg/ Sodium (Chloride) 100 mls @ 100 mls/hr IV Q24H CRISTELA Stop: 10/13/20 23:59 Last Admin: 10/10/20 22:32 Dose: 100 mls/hr Documented by: FAHAD Levofloxacin/Dextrose 750 mg/ (Premix) 150 mls @ 100 mls/hr IV Q24H CRISTELA Last Admin: 10/10/20 01:28 Dose: 100 mls/hr Documented by: ISABEL Ibuprofen (Motrin) 200 mg PO Q4H PRN PRN Reason: Pain Last Admin: 10/10/20 17:55 Dose: 200 mg Documented by: JOAQUIM Ondansetron HCl (Zofran) 4 mg IVPUSH Q4H PRN PRN Reason: Nausea/Vomiting Sodium Chloride ([place] Nasal Herreid) 1 ml KASSIDY Q2H PRN PRN Reason: Nasal Dryness Assessment/Plan Comment:: I performed a history and physical exam of the patient and discussed management with resident. I have reviewed the residents note and agree with documented findings and plan unless otherwise specified in my note.
[2020-10-10] MEDS: Cholecalciferol (Vitamin D3) 10 MCG Tab PO SCH (08:36)
[2020-10-10] MEDS: Dexamethasone 4 MG Tab PO SCH (08:36)
[2020-10-10] MEDS: Enoxaparin 40 MG/0.4 ML Syringe SUBCUT SCH ×2 (08:38→20:30)
[2020-10-10] MEDS: Codeine/guaiFENesin 10-100 MG/5 ML Syrup 5 ML Cup PO PRN ×4 (09:01→22:30)
[2020-10-10] MEDS: Benzocaine/Cetylpyridinium/Menthol Lozenge MUCMEM PRN ×4 (09:02→22:31)
--- NOTE | 2020-10-10 13:27 | CR ---
TECHNIQUE: Portable AP chest radiograph. INDICATION: Worsening hypoxia, COVID-19. COMPARISON: 10/07/2020. FINDINGS: Persistent low lung volumes with vascular crowding. Markedly increased patchy opacities predominating in the bilateral lower lungs. No pneumothorax or appreciable pleural effusion. Unchanged cardiac and mediastinal contours. IMPRESSION: Interval increased heterogeneous lower lung predominant opacities, compatible with COVID-19 pneumonia. Dictated by Laci Diehl MD @ 10/10/2020 1:26:38 PM Dictated by: Laci Diehl MD @ 10/10/2020 13:26:48 (Electronically Signed)
[2020-10-10] MEDS ORDERED: Ibuprofen 200 MG Tab PO PRN (17:27)
[2020-10-10] MEDS ORDERED: Acetaminophen 325 MG Tab PO PRN (17:27)
[2020-10-10] MEDS ORDERED: REMDESIVIR 100 MG in Sodium Chloride 0.9% 100 ML IV SCH (23:00)
[2020-10-10] MEDS: Sodium Chloride 0.65% Nasal Spray 45 ML Bottle NAS PRN (23:48)
[2020-10-11] MEDS: Levofloxacin/Dextrose 5%-Water 750 MG in Premix Bag 1 BAG IV SCH ×2 (00:07→23:36)
[2020-10-11] MEDS: Albuterol/Ipratropium 4 GM Inhalation Spray INH SCH ×6 (04:33→23:36)
[2020-10-11] MEDS: Benzocaine/Cetylpyridinium/Menthol Lozenge MUCMEM PRN ×3 (04:34→22:17)
[2020-10-11] MEDS: Codeine/guaiFENesin 10-100 MG/5 ML Syrup 5 ML Cup PO PRN ×4 (04:34→22:17)
[2020-10-11 06:20] LABS: BLOOD UREA NITROGEN,BUN 11 mg/dL (7.0-18.0); CARBON DIOXIDE,CO2 27.8 mmol/L (21.0-32.0); CHLORIDE,CL 102 mmol/L (98-107); GLUCOSE RANDOM 113 mg/dL (74-106); POTASSIUM,K 3.3 mmol/L (3.5-5.1); SODIUM,NA 139 mmol/L (136-145)
[2020-10-11] MEDS: Sodium Chloride 0.65% Nasal Spray 45 ML Bottle NAS PRN ×3 (08:00→20:21)
[2020-10-11] MEDS: Cholecalciferol (Vitamin D3) 10 MCG Tab PO SCH (08:51)
[2020-10-11] MEDS: Dexamethasone 4 MG Tab PO SCH (08:52)
[2020-10-11] MEDS: Enoxaparin 40 MG/0.4 ML Syringe SUBCUT SCH ×2 (09:00→20:10)
[2020-10-11] MEDS ORDERED: Potassium Chloride 20 MEQ Tab.ER PO SCH (09:00)
[2020-10-11] MEDS ORDERED: Potassium Chloride 20 MEQ Tab.ER PO ONE (09:00)
--- NOTE | 2020-10-11 12:29 | PCM.PN ---
<Vahid Bonilla - Last Filed: 10/11/20 12:29> - General Info Date of Service: 10/11/20 Subjective Update: Patient states difficulty breathing with movement and taking deep breaths. Denies, chills, nausea, abdominal pain, chest pain. Requiring 8L HF oxygen support - Review of Systems General: Denies: Fever, Chills Pulmonary: Reports: Shortness of Breath, Cough. Denies: Pleuritic Chest Pain Cardiovascular: Denies: Chest Pain, Palpitations Gastrointestinal: Reports: Diarrhea. Denies: Abdominal Pain, Nausea Musculoskeletal: Denies: Back Pain Neurological: Denies: Confusion, Dizziness - Patient Data Vitals - Most Recent: Last Vital Signs Temp 98.4 F 10/11/20 12:00 Pulse 90 10/10/20 02:00 Resp 18 10/11/20 12:00 BP 117/81 10/11/20 12:00 Pulse Ox 88 L 10/11/20 12:00 Weight - Most Recent: 78.698 kg I&O - Last 24 Hours: Intake & Output 10/10/20 10/11/20 10/11/20 22:59 06:59 14:59 Intake Total 1120 1250 210 Output Total 1200 1100 Balance -80 150 210 Lab Results Last 24 Hours: Laboratory Results - last 24 hr 10/10/20 10/10/20 10/11/20 Range/Units 00:43 19:10 05:20 WBC 5.05 6.07 (4.0-11.0) K/uL RBC 3.94 L 4.03 L (4.30-5.90) M/uL Hgb 11.7 L 11.9 L (12.0-16.0) g/dL Hct 36.0 37.1 (36.0-46.0) % MCV 91.4 92.1 (80.0-98.0) fL MCH 29.7 29.5 (27.0-32.0) pg MCHC 32.5 32.1 (31.0-37.0) g/dL RDW Std Deviation 42.8 42.6 (28.0-62.0) fl RDW Coeff of Shun 13 13 (11.0-15.0) % Plt Count 229 260 (150-400) K/uL MPV 9.40 9.70 (7.40-12.00) fL Neut % (Auto) 83.7 H 73.7 (48.0-80.0) % Lymph % (Auto) 12.7 L 20.4 (16.0-40.0) % Hickman % (Auto) 3.4 5.9 (0.0-15.0) % Eos % (Auto) 0.0 0.0 (0.0-7.0) % Baso % (Auto) 0.2 0.0 (0.0-1.5) % Neut # (Auto) 4.2 4.5 (1.4-5.7) K/uL Lymph # (Auto) 0.6 1.2 (0.6-2.4) K/uL Hickman # (Auto) 0.2 0.4 (0.0-0.8) K/uL Eos # (Auto) 0.0 0.0 (0.0-0.7) K/uL Baso # (Auto) 0.0 0.0 (0.0-0.1) K/uL Nucleated RBC % 0.0 0.0 /100WBC Nucleated RBCs # 0 0 K/uL Sodium (136-145) mmol/L Potassium (3.5-5.1) mmol/L Chloride (98-107) mmol/L Carbon Dioxide (21.0-32.0) mmol/L BUN (7.0-18.0) mg/dL Creatinine (0.6-1.0) mg/dL Est Cr Clr Drug Dosing mL/min Estimated GFR (MDRD) ml/min Glucose (74-106) mg/dL Calcium (8.5-10.1) mg/dL Ferritin (8-252) ng/mL Total Bilirubin (0.2-1.0) mg/dL AST (15-37) IU/L ALT (14-63) IU/L Alkaline Phosphatase (46-116) U/L Lactate Dehydrogenase (81-234) U/L C-Reactive Protein (0.00-0.90) mg/dL Total Protein (6.4-8.2) g/dL Albumin (3.4-5.0) g/dL Globulin (2.6-4.0) g/dL Albumin/Globulin Ratio (0.9-1.6) Blood Type AB POSITIVE 10/11/20 10/11/20 Range/Units 05:20 05:20 WBC (4.0-11.0) K/uL RBC (4.30-5.90) M/uL Hgb (12.0-16.0) g/dL Hct (36.0-46.0) % MCV (80.0-98.0) fL MCH (27.0-32.0) pg MCHC (31.0-37.0) g/dL RDW Std Deviation (28.0-62.0) fl RDW Coeff of Shun (11.0-15.0) % Plt Count (150-400) K/uL MPV (7.40-12.00) fL Neut % (Auto) (48.0-80.0) % Lymph % (Auto) (16.0-40.0) % [place]ick[place] % (Auto) (0.0-15.0) % Eos % (Auto) (0.0-7.0) % Baso % (Auto) (0.0-1.5) % Neut # (Auto) (1.4-5.7) K/uL Lymph # (Auto) (0.6-2.4) K/uL [place] # (Auto) (0.0-0.8) K/uL Eos # (Auto) (0.0-0.7) K/uL Baso # (Auto) (0.0-0.1) K/uL Nucleated RBC % /100WBC Nucleated RBCs # K/uL Sodium 139 (136-145) mmol/L Potassium 3.3 L (3.5-5.1) mmol/L Chloride 102 (98-107) mmol/L Carbon Dioxide 27.8 (21.0-32.0) mmol/L BUN 11 (7.0-18.0) mg/dL Creatinine 0.7 (0.6-1.0) mg/dL Est Cr Clr Drug Dosing 91.25 mL/min Estimated GFR (MDRD) > 60.0 ml/min Glucose 113 H (74-106) mg/dL Calcium 8.3 L (8.5-10.1) mg/dL Ferritin 598 H (8-252) ng/mL Total Bilirubin 0.4 (0.2-1.0) mg/dL AST 37 (15-37) IU/L ALT 44 (14-63) IU/L Alkaline Phosphatase 48 (46-116) U/L Lactate Dehydrogenase 447 H (81-234) U/L C-Reactive Protein 6.20 H (0.00-0.90) mg/dL Total Protein 6.8 (6.4-8.2) g/dL Albumin 2.9 L (3.4-5.0) g/dL Globulin 3.9 (2.6-4.0) g/dL Albumin/Globulin Ratio 0.7 L (0.9-1.6) Blood Type Med Orders - Current: Current Medications Acetaminophen (Tylenol) 650 mg PO Q4H PRN PRN Reason: Pain/Fever Albuterol/Ipratropium (Combivent Respimat) 0 gm INH Q4H [facility] Last Admin: 10/11/20 08:51 Dose: 1 puff Documented by: Albuterol/Ipratropium (Duoneb 3.0-0.5 Mg/3 Ml) 3 ml NEB Q4HRRT PRN PRN Reason: Shortness of Breath Last Admin: 10/10/20 13:06 Dose: 3 ml Documented by: Benzocaine/Menthol (Cepacol Sore Throat) 1 lozenge MUCMEM Q4HR PRN PRN Reason: Sore Throat Last Admin: 10/11/20 08:51 Dose: 1 lozenge Documented by: Cholecalciferol (Vitamin D3) 20 mcg PO DAILY [facility] Last Admin: 10/11/20 08:51 Dose: 20 mcg Documented by: Dexamethasone (Dexamethasone) 6 mg PO DAILY [facility] Last Admin: 10/11/20 08:52 Dose: 6 mg Documented by: Enoxaparin Sodium (Lovenox) 40 mg SUBCUT BID [facility] Last Admin: 10/11/20 09:00 Dose: 40 mg Documented by: Guaifenesin/Codeine Phosphate (Robitussin Ac) 5 ml PO Q4H PRN PRN Reason: Cough Last Admin: 10/11/20 08:51 Dose: 5 ml Documented by: Remdesivir 100 mg/ Sodium (Chloride) 100 mls @ 100 mls/hr IV Q24H [facility] Stop: 10/13/20 23:59 Last Admin: 10/10/20 22:32 Dose: 100 mls/hr Documented by: Levofloxacin/Dextrose 750 mg/ (Premix) 150 mls @ 100 mls/hr IV Q24H [facility] Last Admin: 10/11/20 00:07 Dose: 100 mls/hr Documented by: Ibuprofen (Motrin) 200 mg PO Q4H PRN PRN Reason: Pain Last Admin: 10/10/20 17:55 Dose: 200 mg Documented by: Loperamide HCl (Imodium) 2 mg PO Q4H PRN PRN Reason: Diarrhea Ondansetron HCl (Zofran) 4 mg IVPUSH Q4H PRN PRN Reason: Nausea/Vomiting Sodium Chloride ([place] Nasal [place]) 0 ml KASSIDY Q2H PRN PRN Reason: Nasal Dryness Last Admin: 10/10/20 23:48 Dose: 1 sprays Documented by: Discontinued Medications Albuterol (Proventil Hfa) 18 gm INH ONETIME ONE Stop: 10/09/20 22:17 Last Admin: 10/09/20 22:22 Dose: 1 puff Documented by: Albuterol (Ventolin Hfa) Confirm Administered Dose 18 gm .ROUTE .STK-MED ONE Stop: 10/09/20 22:16 Last Admin: 10/09/20 22:21 Dose: Not Given Documented by: Dexamethasone (Decadron) 10 mg IVPUSH ONETIME ONE Stop: 10/09/20 22:32 Last Admin: 10/09/20 22:54 Dose: 10 mg Documented by: Remdesivir 200 mg/ Sodium (Chloride) 250 mls @ 250 mls/hr IV ONETIME ONE Stop: 10/09/20 22:34 Last Admin: 10/09/20 22:54 Dose: 250 mls/hr Documented by: Potassium Chloride (Klor-Con M20) 40 meq PO DAILY [facility] Potassium Chloride (Klor-Con M20) 40 meq PO ONETIME ONE Stop: 10/11/20 09:01 Last Admin: 10/11/20 08:59 Dose: 40 meq Documented by: Sodium Phosphate (Neutra-Phos) 250 mg PO ONETIME ONE Stop: 10/10/20 00:54 Last Admin: 10/10/20 01:28 Dose: 250 mg Documented by: - Exam General: Alert, Oriented Lungs: Clear to Auscultation, Other (decreased inspiratory effort) Cardiovascular: Regular Rate, Regular Rhythm GI/Abdominal Exam: Normal Bowel Sounds, Soft, Non-Tender Extremities: No Pedal Edema Sepsis Event Note - Evaluation Sepsis Screening Result: No Definite Risk - Focused Exam Vital Signs: Vital Signs Temp Temp Resp BP Pulse Ox Pulse Ox 10/11/20 12:00 98.4 F 18 117/81 88 L 10/11/20 11:35 98.4 F 18 117/81 88 L 10/11/20 10:35 98.4 F 18 111/72 98 10/11/20 10:00 99 10/11/20 09:16 97.9 F 20 118/77 88 L 10/11/20 09:01 97.9 F 18 129/108 H 90 L 10/11/20 08:46 97.9 F 97.9 F 18 117/82 88 L 10/11/20 04:00 97.2 F 20 116/78 90 L - Problem List Review Problem List Initiated/Reviewed/Updated: Yes - My Orders Last 24 Hours: My Active Orders 10/10/20 17:27 Acetaminophen [TylenoL] 650 mg PO Q4H PRN Ibuprofen [Motrin] 200 mg PO Q4H PRN 10/11/20 12:02 Loperamide [Imodium] 2 mg PO Q4H PRN 10/13/20 05:11 CRP [C-REACTIVE PROTEIN] [CHEM] AM - Plan Plan:: COVID-19 infection Remdesivir 100mg QD, dexamethasone 6mg QD, Combivent, encourage prone positioning, incentive spirometry, Lovenox 40mg QD, Levaquin 750mg QD. Patient requiring 8L HF. Will attempt to wean slowly and encourage IC with prone positioning. Loperamide given for diarrhea. <Smitha Gamez - Last Filed: 10/12/20 14:12> - General Info Subjective Update: I have seen and evaluated the patient and agree with the residents note unless specified in my note - Patient Data Vitals - Most Recent: Last Vital Signs Temp 37.2 C 10/12/20 12:00 Pulse 90 10/10/20 02:00 Resp 20 10/12/20 12:00 BP 115/78 10/12/20 12:00 Pulse Ox 97 10/12/20 12:00 I&O - Last 24 Hours: Intake & Output 10/11/20 10/12/20 10/12/20 22:59 06:59 14:59 Intake Total 1020 1850 Output Total 1200 1000 Balance -180 850 Lab Results Last 24 Hours: Laboratory Results - last 24 hr 10/12/20 10/12/20 Range/Units 06:02 06:02 WBC 4.97 (4.0-11.0) K/uL RBC 3.83 L (4.30-5.90) M/uL Hgb 11.4 L (12.0-16.0) g/dL Hct 35.1 L (36.0-46.0) % MCV 91.6 (80.0-98.0) fL MCH 29.8 (27.0-32.0) pg MCHC 32.5 (31.0-37.0) g/dL RDW Std Deviation 42.0 (28.0-62.0) fl RDW Coeff of Shun 12 (11.0-15.0) % Plt Count 273 (150-400) K/uL MPV 9.30 (7.40-12.00) fL Add Manual Diff YES Neutrophils % (Manual) 55 (48.0-80.0) % Lymphocytes % (Manual) 35 (16.0-40.0) % Monocytes % (Manual) 10 (0.0-15.0) % Nucleated RBC % 0.0 /100WBC Absolute Seg Neuts 2.7 (1.4-5.7) Lymphocytes # (Manual) 1.7 (0.6-2.4) Monocytes # (Manual) 0.5 (0.0-0.8) Nucleated RBCs # 0 K/uL Sodium 140 (136-145) mmol/L Potassium 3.6 (3.5-5.1) mmol/L Chloride 104 (98-107) mmol/L Carbon Dioxide 27.0 (21.0-32.0) mmol/L BUN 10 (7.0-18.0) mg/dL Creatinine 0.7 (0.6-1.0) mg/dL Est Cr Clr Drug Dosing 91.25 mL/min Estimated GFR (MDRD) > 60.0 ml/min Glucose 95 (74-106) mg/dL Calcium 8.4 L (8.5-10.1) mg/dL Total Bilirubin 0.5 (0.2-1.0) mg/dL AST 74 H (15-37) IU/L ALT 87 H (14-63) IU/L Alkaline Phosphatase 62 (46-116) U/L Total Protein 6.7 (6.4-8.2) g/dL Albumin 3.0 L (3.4-5.0) g/dL Globulin 3.7 (2.6-4.0) g/dL Albumin/Globulin Ratio 0.8 L (0.9-1.6) Med Orders - Current: Current Medications Acetaminophen (Tylenol) 650 mg PO Q4H PRN PRN Reason: Pain/Fever Albuterol/Ipratropium (Combivent Respimat) 0 gm INH Q4H [facility] Last Admin: 10/12/20 11:46 Dose: 1 puff Documented by: Albuterol/Ipratropium (Duoneb 3.0-0.5 Mg/3 Ml) 3 ml NEB Q4HRRT PRN PRN Reason: Shortness of Breath Last Admin: 10/10/20 13:06 Dose: 3 ml Documented by: Benzocaine/Menthol (Cepacol Sore Throat) 1 lozenge MUCMEM Q4HR PRN PRN Reason: Sore Throat Last Admin: 10/11/20 22:17 Dose: 1 lozenge Documented by: Cholecalciferol (Vitamin D3) 20 mcg PO DAILY [facility] Last Admin: 10/12/20 08:08 Dose: 20 mcg Documented by: Dexamethasone (Dexamethasone) 6 mg PO DAILY [facility] Last Admin: 10/12/20 08:57 Dose: 6 mg Documented by: Enoxaparin Sodium (Lovenox) 40 mg SUBCUT BID [facility] Last Admin: 10/12/20 08:57 Dose: 40 mg Documented by: Guaifenesin/Codeine Phosphate (Robitussin Ac) 5 ml PO Q4H PRN PRN Reason: Cough Last Admin: 10/12/20 12:59 Dose: 5 ml Documented by: Levofloxacin/Dextrose 750 mg/ (Premix) 150 mls @ 100 mls/hr IV Q24H [facility] Last Admin: 10/11/20 23:36 Dose: 100 mls/hr Documented by: Remdesivir 100 mg/ Sodium (Chloride) 100 mls @ 100 mls/hr IV Q24H [facility] Stop: 10/13/20 23:59 Last Admin: 10/11/20 22:17 Dose: 100 mls/hr Documented by: Ibuprofen (Motrin) 200 mg PO Q4H PRN PRN Reason: Pain Last Admin: 10/10/20 17:55 Dose: 200 mg Documented by: Loperamide HCl (Imodium) 2 mg PO Q4H PRN PRN Reason: Diarrhea Last Admin: 10/12/20 13:49 Dose: 2 mg Documented by: Ondansetron HCl (Zofran) 4 mg IVPUSH Q4H PRN PRN Reason: Nausea/Vomiting Sodium Chloride ([place] Nasal [place]) 0 ml KASSIDY Q2H PRN PRN Reason: Nasal Dryness Last Admin: 10/12/20 10:00 Dose: 1 sprays Documented by: Discontinued Medications Albuterol (Proventil Hfa) 18 gm INH ONETIME ONE Stop: 10/09/20 22:17 Last Admin: 10/09/20 22:22 Dose: 1 puff Documented by: Albuterol (Ventolin Hfa) Confirm Administered Dose 18 gm .ROUTE .STK-MED ONE Stop: 10/09/20 22:16 Last Admin: 10/09/20 22:21 Dose: Not Given Documented by: Dexamethasone (Decadron) 10 mg IVPUSH ONETIME ONE Stop: 10/09/20 22:32 Last Admin: 10/09/20 22:54 Dose: 10 mg Documented by: Furosemide (Lasix) 20 mg IVPUSH NOW ONE Stop: 10/12/20 09:45 Last Admin: 10/12/20 11:38 Dose: 20 mg Documented by: Remdesivir 200 mg/ Sodium (Chloride) 250 mls @ 250 mls/hr IV ONETIME ONE Stop: 10/09/20 22:34 Last Admin: 10/09/20 22:54 Dose: 250 mls/hr Documented by: Remdesivir 100 mg/ Sodium (Chloride) 100 mls @ 100 mls/hr IV Q24H [facility] Stop: 10/13/20 23:59 Last Admin: 10/10/20 22:32 Dose: 100 mls/hr Documented by: Remdesivir 100 mg/ Sodium (Chloride) 100 mls @ 100 mls/hr IV Q24H [facility] Stop: 10/14/20 13:33 Potassium Chloride (Klor-Con M20) 40 meq PO DAILY [facility] Potassium Chloride (Klor-Con M20) 40 meq PO ONETIME ONE Stop: 10/11/20 09:01 Last Admin: 10/11/20 08:59 Dose: 40 meq Documented by: Sodium Phosphate (Neutra-Phos) 250 mg PO ONETIME ONE Stop: 10/10/20 00:54 Last Admin: 10/10/20 01:28 Dose: 250 mg Documented by: Sepsis Event Note - Focused Exam Vital Signs: Vital Signs Temp Resp BP Pulse Ox 10/12/20 12:00 37.2 C 20 115/78 97 10/12/20 08:00 36.5 C 18 120/84 97 10/12/20 06:00 36.2 C 19 124/86 94 L 10/12/20 05:00 36.1 C 19 115/78 91 L 10/12/20 04:25 36.1 C 20 120/83 90 L 10/12/20 04:10 36.2 C 19 123/86 91 L - Problem List & Annotations (1) Acute respiratory failure with hypoxia SNOMED Code(s): 07050989, 131961733 Code(s): J96.01 - ACUTE RESPIRATORY FAILURE WITH HYPOXIA Status: Acute Current Visit: Yes (2) Bilateral pneumonia SNOMED Code(s): 279155441 Code(s): J18.9 - PNEUMONIA, UNSPECIFIED ORGANISM Status: Acute Current Visit: Yes (3) COVID-19 SNOMED Code(s): 015421980 Code(s): U07.1 - COVID-19 Status: Acute Current Visit: Yes - My Orders Last 24 Hours: My Active Orders 10/11/20 23:00 Remdesivir 100 mg Sodium Chloride 0.9% [Normal Saline] 100 ml IV Q24H 10/12/20 05:00 Transfuse Fresh Frozen Plasma [COMM] Routine 10/13/20 05:11 CBC WITH AUTO DIFF [HEME] AM CMP [COMPREHENSIVE METABOLIC PN,CMP] [CHEM] AM MAGNESIUM [CHEM] AM PHOSPHORUS [CHEM] AM
[2020-10-11] MEDS ORDERED: REMDESIVIR 100 MG in Sodium Chloride 0.9% 100 ML IV SCH (12:34)
[2020-10-11] MEDS: Loperamide 2 MG Cap PO PRN ×2 (12:55→22:18)
[2020-10-11] MEDS: REMDESIVIR 100 MG in Sodium Chloride 0.9% 100 ML IV SCH (22:17)
[2020-10-12] MEDS: Albuterol/Ipratropium 4 GM Inhalation Spray INH SCH ×6 (03:29→23:17)
[2020-10-12] MEDS: Loperamide 2 MG Cap PO PRN ×5 (04:11→23:11)
[2020-10-12] MEDS: Sodium Chloride 0.65% Nasal Spray 45 ML Bottle NAS PRN ×3 (04:21→23:18)
[2020-10-12 06:51] LABS: BLOOD UREA NITROGEN,BUN 10 mg/dL (7.0-18.0); CHLORIDE,CL 104 mmol/L (98-107); GLUCOSE RANDOM 95 mg/dL (74-106); POTASSIUM,K 3.6 mmol/L (3.5-5.1); SODIUM,NA 140 mmol/L (136-145)
[2020-10-12] MEDS: Cholecalciferol (Vitamin D3) 10 MCG Tab PO SCH (08:08)
[2020-10-12] MEDS: Enoxaparin 40 MG/0.4 ML Syringe SUBCUT SCH ×2 (08:57→20:20)
[2020-10-12] MEDS: Dexamethasone 4 MG Tab PO SCH (08:57)
[2020-10-12] MEDS: Codeine/guaiFENesin 10-100 MG/5 ML Syrup 5 ML Cup PO PRN ×3 (08:57→18:20)
[2020-10-12] MEDS ORDERED: Furosemide 40 MG/4 ML VIAL IVPUSH ONE (09:44)
--- NOTE | 2020-10-12 13:48 | PCM.PN ---
- General Info Date of Service: 10/12/20 Admission Dx/Problem (Free Text): Admission Diagnosis/Problem Admission Diagnosis/Problem Bilateral pneumonia Subjective Update: Patient seen at bedside, sitting up on bed, Denies, chills, nausea, abdominal pain, chest pain. Requiring 4L NC oxygen support, desats to mid 80s while speaking to me. Diarrhea has improved Functional Status: Reports: Pain Controlled, Tolerating Diet, Ambulating - Review of Systems General: Reports: Weakness, Fatigue. Denies: Fever Pulmonary: Reports: Shortness of Breath, Cough, Sputum. Denies: Pleuritic Chest Pain Cardiovascular: Reports: Dyspnea on Exertion. Denies: Chest Pain, Palpitations Gastrointestinal: Denies: Abdominal Pain, Constipation, Decreased Appetite Genitourinary: Denies: Dysuria, Frequency, Burning Musculoskeletal: Denies: Neck Pain, Shoulder Pain, Arm Pain Skin: Denies: Cyanosis, Jaundice, Mottled Neurological: Denies: Confusion, Dizziness, Headache - Patient Data Vitals - Most Recent: Last Vital Signs Temp 37.2 C 10/12/20 12:00 Pulse 90 10/10/20 02:00 Resp 20 10/12/20 12:00 BP 115/78 10/12/20 12:00 Pulse Ox 97 10/12/20 12:00 Weight - Most Recent: 78.698 kg I&O - Last 24 Hours: Intake & Output 10/11/20 10/12/20 10/12/20 22:59 06:59 14:59 Intake Total 1020 1850 Output Total 1200 1000 Balance -180 850 Lab Results Last 24 Hours: Laboratory Results - last 24 hr 10/12/20 10/12/20 Range/Units 06:02 06:02 WBC 4.97 (4.0-11.0) K/uL RBC 3.83 L (4.30-5.90) M/uL Hgb 11.4 L (12.0-16.0) g/dL Hct 35.1 L (36.0-46.0) % MCV 91.6 (80.0-98.0) fL MCH 29.8 (27.0-32.0) pg MCHC 32.5 (31.0-37.0) g/dL RDW Std Deviation 42.0 (28.0-62.0) fl RDW Coeff of Shun 12 (11.0-15.0) % Plt Count 273 (150-400) K/uL MPV 9.30 (7.40-12.00) fL Add Manual Diff YES Neutrophils % (Manual) 55 (48.0-80.0) % Lymphocytes % (Manual) 35 (16.0-40.0) % Monocytes % (Manual) 10 (0.0-15.0) % Nucleated RBC % 0.0 /100WBC Absolute Seg Neuts 2.7 (1.4-5.7) Lymphocytes # (Manual) 1.7 (0.6-2.4) Monocytes # (Manual) 0.5 (0.0-0.8) Nucleated RBCs # 0 K/uL Sodium 140 (136-145) mmol/L Potassium 3.6 (3.5-5.1) mmol/L Chloride 104 (98-107) mmol/L Carbon Dioxide 27.0 (21.0-32.0) mmol/L BUN 10 (7.0-18.0) mg/dL Creatinine 0.7 (0.6-1.0) mg/dL Est Cr Clr Drug Dosing 91.25 mL/min Estimated GFR (MDRD) > 60.0 ml/min Glucose 95 (74-106) mg/dL Calcium 8.4 L (8.5-10.1) mg/dL Total Bilirubin 0.5 (0.2-1.0) mg/dL AST 74 H (15-37) IU/L ALT 87 H (14-63) IU/L Alkaline Phosphatase 62 (46-116) U/L Total Protein 6.7 (6.4-8.2) g/dL Albumin 3.0 L (3.4-5.0) g/dL Globulin 3.7 (2.6-4.0) g/dL Albumin/Globulin Ratio 0.8 L (0.9-1.6) Med Orders - Current: Current Medications Acetaminophen (Tylenol) 650 mg PO Q4H PRN PRN Reason: Pain/Fever Albuterol/Ipratropium (Combivent Respimat) 0 gm INH Q4H [facility] Last Admin: 10/12/20 11:46 Dose: 1 puff Documented by: Albuterol/Ipratropium (Duoneb 3.0-0.5 Mg/3 Ml) 3 ml NEB Q4HRRT PRN PRN Reason: Shortness of Breath Last Admin: 10/10/20 13:06 Dose: 3 ml Documented by: Benzocaine/Menthol (Cepacol Sore Throat) 1 lozenge MUCMEM Q4HR PRN PRN Reason: Sore Throat Last Admin: 10/11/20 22:17 Dose: 1 lozenge Documented by: Cholecalciferol (Vitamin D3) 20 mcg PO DAILY [facility] Last Admin: 10/12/20 08:08 Dose: 20 mcg Documented by: Dexamethasone (Dexamethasone) 6 mg PO DAILY [facility] Last Admin: 10/12/20 08:57 Dose: 6 mg Documented by: Enoxaparin Sodium (Lovenox) 40 mg SUBCUT BID [facility] Last Admin: 10/12/20 08:57 Dose: 40 mg Documented by: Guaifenesin/Codeine Phosphate (Robitussin Ac) 5 ml PO Q4H PRN PRN Reason: Cough Last Admin: 10/12/20 12:59 Dose: 5 ml Documented by: Levofloxacin/Dextrose 750 mg/ (Premix) 150 mls @ 100 mls/hr IV Q24H [facility] Last Admin: 10/11/20 23:36 Dose: 100 mls/hr Documented by: Remdesivir 100 mg/ Sodium (Chloride) 100 mls @ 100 mls/hr IV Q24H [facility] Stop: 10/13/20 23:59 Last Admin: 10/11/20 22:17 Dose: 100 mls/hr Documented by: Ibuprofen (Motrin) 200 mg PO Q4H PRN PRN Reason: Pain Last Admin: 10/10/20 17:55 Dose: 200 mg Documented by: Loperamide HCl (Imodium) 2 mg PO Q4H PRN PRN Reason: Diarrhea Last Admin: 10/12/20 09:15 Dose: 2 mg Documented by: Ondansetron HCl (Zofran) 4 mg IVPUSH Q4H PRN PRN Reason: Nausea/Vomiting Sodium Chloride ([place] Nasal [place]) 0 ml KASSIDY Q2H PRN PRN Reason: Nasal Dryness Last Admin: 10/12/20 10:00 Dose: 1 sprays Documented by: Discontinued Medications Albuterol (Proventil Hfa) 18 gm INH ONETIME ONE Stop: 10/09/20 22:17 Last Admin: 10/09/20 22:22 Dose: 1 puff Documented by: Albuterol (Ventolin Hfa) Confirm Administered Dose 18 gm .ROUTE .STK-MED ONE Stop: 10/09/20 22:16 Last Admin: 10/09/20 22:21 Dose: Not Given Documented by: Dexamethasone (Decadron) 10 mg IVPUSH ONETIME ONE Stop: 10/09/20 22:32 Last Admin: 10/09/20 22:54 Dose: 10 mg Documented by: Furosemide (Lasix) 20 mg IVPUSH NOW ONE Stop: 10/12/20 09:45 Last Admin: 10/12/20 11:38 Dose: 20 mg Documented by: Remdesivir 200 mg/ Sodium (Chloride) 250 mls @ 250 mls/hr IV ONETIME ONE Stop: 10/09/20 22:34 Last Admin: 10/09/20 22:54 Dose: 250 mls/hr Documented by: Remdesivir 100 mg/ Sodium (Chloride) 100 mls @ 100 mls/hr IV Q24H [facility] Stop: 10/13/20 23:59 Last Admin: 10/10/20 22:32 Dose: 100 mls/hr Documented by: Remdesivir 100 mg/ Sodium (Chloride) 100 mls @ 100 mls/hr IV Q24H [facility] Stop: 10/14/20 13:33 Potassium Chloride (Klor-Con M20) 40 meq PO DAILY [facility] Potassium Chloride (Klor-Con M20) 40 meq PO ONETIME ONE Stop: 10/11/20 09:01 Last Admin: 10/11/20 08:59 Dose: 40 meq Documented by: Sodium Phosphate (Neutra-Phos) 250 mg PO ONETIME ONE Stop: 10/10/20 00:54 Last Admin: 10/10/20 01:28 Dose: 250 mg Documented by: - Exam Quality Assessment: Supplemental Oxygen General: Alert, Oriented, Cooperative, Mild Distress Neck: Supple, Trachea Midline Lungs: Clear to Auscultation, Normal Respiratory Effort Cardiovascular: Regular Rate, Regular Rhythm, No Murmurs GI/Abdominal Exam: Normal Bowel Sounds, Soft, Non-Tender Sepsis Event Note - Evaluation Sepsis Screening Result: No Definite Risk - Focused Exam Vital Signs: Vital Signs Temp Resp BP Pulse Ox 10/12/20 12:00 37.2 C 20 115/78 97 11/29/20 08:00 36.5 C 18 120/84 97 10/12/20 06:00 36.2 C 19 124/86 94 L 10/12/20 05:00 36.1 C 19 115/78 91 L 10/12/20 04:25 36.1 C 20 120/83 90 L 10/12/20 04:10 36.2 C 19 123/86 91 L - Problem List & Annotations (1) Acute respiratory failure with hypoxia SNOMED Code(s): 31130285, 622736940 Code(s): J96.01 - ACUTE RESPIRATORY FAILURE WITH HYPOXIA Status: Acute Current Visit: Yes (2) Bilateral pneumonia SNOMED Code(s): 323251750 Code(s): J18.9 - PNEUMONIA, UNSPECIFIED ORGANISM Status: Acute Current Visit: Yes (3) COVID-19 SNOMED Code(s): 609433692 Code(s): U07.1 - COVID-19 Status: Acute Current Visit: Yes - Problem List Review Problem List Initiated/Reviewed/Updated: Yes - My Orders Last 24 Hours: My Active Orders 10/11/20 23:00 Remdesivir 100 mg Sodium Chloride 0.9% [Normal Saline] 100 ml IV Q24H 10/12/20 05:00 Transfuse Fresh Frozen Plasma [COMM] Routine - Plan Plan:: COVID-19 infection Remdesivir 100mg QD, dexamethasone 6mg QD, Combivent, encourage prone positioning, incentive spirometry, Lovenox 40mg QD, Levaquin 750mg QD. Received the convalescent plasma 2 units Patient requiring 5L NC. Will attempt to wean slowly and encourage IC with prone positioning. Loperamide given for diarrhea. May give a trail of BiPAP later 1 dose of lasix 20 mg IV
[2020-10-12] MEDS: REMDESIVIR 100 MG in Sodium Chloride 0.9% 100 ML IV SCH (23:14)
[2020-10-13] MEDS: Levofloxacin/Dextrose 5%-Water 750 MG in Premix Bag 1 BAG IV SCH (00:38)
[2020-10-13] MEDS: Codeine/guaiFENesin 10-100 MG/5 ML Syrup 5 ML Cup PO PRN (00:42)
[2020-10-13] MEDS: Albuterol/Ipratropium 4 GM Inhalation Spray INH SCH ×4 (03:28→16:01)
[2020-10-13 06:49] LABS: BLOOD UREA NITROGEN,BUN 12 mg/dL (7.0-18.0); CARBON DIOXIDE,CO2 28.8 mmol/L (21.0-32.0); CHLORIDE,CL 101 mmol/L (98-107); GLUCOSE RANDOM 96 mg/dL (74-106); POTASSIUM,K 3.5 mmol/L (3.5-5.1); SODIUM,NA 137 mmol/L (136-145)
[2020-10-13] MEDS: Cholecalciferol (Vitamin D3) 10 MCG Tab PO SCH (09:00)
[2020-10-13] MEDS: Dexamethasone 4 MG Tab PO SCH (09:00)
[2020-10-13] MEDS: Enoxaparin 40 MG/0.4 ML Syringe SUBCUT SCH (09:01)
[2020-10-13] MEDS ORDERED: Furosemide 40 MG/4 ML VIAL IVPUSH ONE (16:03)
--- NOTE | 2020-10-13 17:14 | PCM.DCSUM1 ---
Discharge Summary - Hospital Course Free Text/Narrative:: 30 yr old female admitted for COVID infection. Prior to admission patient states history of of muscle aches, fatigue and significant SOB that progressed by admission. Prior to admission, patient did have an chest x-ray performed which showed lung infiltrates. On presentation to ED, patient had oxygen saturations in the upper 70's. Patient treated with Remdesivir, dexamethasone, Combivent, Lovenox, Levaquin, and convalescent plasma 2 units. Patient required high flow oxygen support, up to 8L but was weaned down to 2L N/C at discharge with oxygen saturations in the low 90"s at rest. Patient discharged home with Home oxygen. - Discharge Data Discharge Date: 10/13/20 Discharge Disposition: Home, Self-Care 01 Condition: Stable - Referral to Home Health Primary Care Physician: PCP None - Patient Instructions Diet: Regular Diet as Tolerated Activity: As Tolerated Driving: May Drive Today Showering/Bathing: May Shower Notify Provider of: Fever, Increased Pain, Swelling and Redness, Drainage, Nausea and/or Vomiting Other/Special Instructions: Return to ER if increasing SOB, fever, worsening symptoms - Discharge Plan *PRESCRIPTION DRUG MONITORING PROGRAM REVIEWED*: No *COPY OF PRESCRIPTION DRUG MONITORING REPORT IN PATIENT KI: No Prescriptions/Med Rec: dexAMETHasone [Dexamethasone] 6 mg PO DAILY #5 tablet levoFLOXacin [Levaquin] 750 mg PO DAILY #5 tab Cholecalciferol (Vitamin D3) [Vitamin D3] 20 mcg PO DAILY #30 tablet Home Medications: Home Meds Cholecalciferol (Vitamin D3) [Vitamin D3] 20 mcg PO DAILY #30 tablet 10/13/20 [Rx] dexAMETHasone [Dexamethasone] 6 mg PO DAILY #5 tablet 10/13/20 [Rx] levoFLOXacin [Levaquin] 750 mg PO DAILY #5 tab 10/13/20 [Rx] Patient Handouts: Alendronate; Cholecalciferol tablets, COVID-19, COVID-19: How to Protect Yourself and Others - CDC, Levofloxacin tablets, Dexamethasone tablets, Prevent the Spread of COVID-19 if You Are Sick - [facility] Referrals: Emily Marrero PA [Physician Contact Finger Assembler] - 10/28/20 2:00 pm (Please arrive 15mins early, bring ID, insurance information and own mask on appointment.) - Discharge Summary/Plan Comment DC Time >30 min.: Yes - General Info Date of Service: 10/13/20 Subjective Update: Patient states that she feels better and is ready to go home. Denies nausea, abdo pain, fever, chills. Patient still has a slight cough and SOB especially with movement. - Review of Systems General: Reports: Fatigue. Denies: Fever, Chills Pulmonary: Reports: Shortness of Breath, Cough Cardiovascular: Reports: Dyspnea on Exertion. Denies: Chest Pain, Palpitations Gastrointestinal: Denies: Abdominal Pain, Nausea, Vomiting Neurological: Denies: Confusion, Dizziness, Headache - Patient Data Vitals - Most Recent: Last Vital Signs Temp 97.1 F 10/13/20 12:00 Pulse 88 10/13/20 12:00 Resp 20 10/13/20 12:00 BP 96/62 10/13/20 12:00 Pulse Ox 91 L 10/13/20 12:00 Weight - Most Recent: 173 lb 8 oz I&O - Last 24 hours: Intake & Output 10/13/20 10/13/20 10/13/20 06:59 14:59 22:59 Intake Total 1650 1600 Output Total 1400 350 Balance 250 1250 Lab Results - Last 24 hrs: Laboratory Results - last 24 hr 10/10/20 10/13/20 10/13/20 Range/Units 00:43 05:48 05:48 WBC 5.54 (4.0-11.0) K/uL RBC 4.20 L (4.30-5.90) M/uL Hgb 12.7 (12.0-16.0) g/dL Hct 38.3 (36.0-46.0) % MCV 91.2 (80.0-98.0) fL MCH 30.2 (27.0-32.0) pg MCHC 33.2 (31.0-37.0) g/dL RDW Std Deviation 40.7 (28.0-62.0) fl RDW Coeff of Shun 12 (11.0-15.0) % Plt Count 354 (150-400) K/uL MPV 9.40 (7.40-12.00) fL Add Manual Diff YES Neutrophils % (Manual) 62 (48.0-80.0) % Band Neutrophils % 3 % Lymphocytes % (Manual) 31 (16.0-40.0) % Monocytes % (Manual) 4 (0.0-15.0) % Nucleated RBC % 0.0 /100WBC Absolute Seg Neuts 3.4 (1.4-5.7) Band Neutrophils # 0.2 Lymphocytes # (Manual) 1.7 (0.6-2.4) Monocytes # (Manual) 0.2 (0.0-0.8) Nucleated RBCs # 0 K/uL Sodium 137 (136-145) mmol/L Potassium 3.5 (3.5-5.1) mmol/L Chloride 101 (98-107) mmol/L Carbon Dioxide 28.8 (21.0-32.0) mmol/L BUN 12 (7.0-18.0) mg/dL Creatinine 0.8 (0.6-1.0) mg/dL Est Cr Clr Drug Dosing 79.85 mL/min Estimated GFR (MDRD) > 60.0 ml/min Glucose 96 (74-106) mg/dL Calcium 8.8 (8.5-10.1) mg/dL Phosphorus 3.8 (2.6-4.7) mg/dL Magnesium 2.2 (1.8-2.4) mg/dL Total Bilirubin 0.5 (0.2-1.0) mg/dL AST 106 H (15-37) IU/L ALT 200 H (14-63) IU/L Alkaline Phosphatase 66 (46-116) U/L C-Reactive Protein 2.20 H (0.00-0.90) mg/dL Total Protein 7.3 (6.4-8.2) g/dL Albumin 3.3 L (3.4-5.0) g/dL Globulin 4.0 (2.6-4.0) g/dL Albumin/Globulin Ratio 0.8 L (0.9-1.6) Blood Type AB POSITIVE Med Orders - Current: Current Medications Acetaminophen (Tylenol) 650 mg PO Q4H PRN PRN Reason: Pain/Fever Albuterol/Ipratropium (Combivent Respimat) 0 gm INH Q4H CRISTELA Last Admin: 10/13/20 16:01 Dose: 1 puff Documented by: Albuterol/Ipratropium (Duoneb 3.0-0.5 Mg/3 Ml) 3 ml NEB Q4HRRT PRN PRN Reason: Shortness of Breath Last Admin: 10/10/20 13:06 Dose: 3 ml Documented by: Benzocaine/Menthol (Cepacol Sore Throat) 1 lozenge MUCMEM Q4HR PRN PRN Reason: Sore Throat Last Admin: 10/11/20 22:17 Dose: 1 lozenge Documented by: Cholecalciferol (Vitamin D3) 20 mcg PO DAILY [facility] Last Admin: 10/13/20 09:00 Dose: 20 mcg Documented by: Dexamethasone (Dexamethasone) 6 mg PO DAILY [facility] Last Admin: 10/13/20 09:00 Dose: 6 mg Documented by: Enoxaparin Sodium (Lovenox) 40 mg SUBCUT BID [facility], [facility] Last Admin: 10/13/20 09:01 Dose: 40 mg Documented by: Guaifenesin/Codeine Phosphate (Robitussin Ac) 5 ml PO Q4H PRN PRN Reason: Cough Last Admin: 10/13/20 00:42 Dose: 5 ml Documented by: Levofloxacin/Dextrose 750 mg/ (Premix) 150 mls @ 100 mls/hr IV Q24H [facility] Last Admin: 10/13/20 00:38 Dose: 100 mls/hr Documented by: Remdesivir 100 mg/ Sodium (Chloride) 100 mls @ 100 mls/hr IV Q24H [facility]1983 Stop: 10/13/20 23:59 Last Admin: 10/12/20 23:14 Dose: 100 mls/hr Documented by: Ibuprofen (Motrin) 200 mg PO Q4H PRN PRN Reason: Pain Last Admin: 10/10/20 17:55 Dose: 200 mg Documented by: Loperamide HCl (Imodium) 2 mg PO Q4H PRN PRN Reason: Diarrhea Last Admin: 10/12/20 23:11 Dose: 2 mg Documented by: Ondansetron HCl (Zofran) 4 mg IVPUSH Q4H PRN PRN Reason: Nausea/Vomiting Sodium Chloride ([place] Nasal [place]) 0 ml KASSIDY Q2H PRN PRN Reason: Nasal Dryness Last Admin: 10/12/20 23:18 Dose: 1 sprays Documented by: Discontinued Medications Albuterol (Proventil Hfa) 18 gm INH ONETIME ONE Stop: 10/09/20 22:17 Last Admin: 10/09/20 22:22 Dose: 1 puff Documented by: Albuterol (Ventolin Hfa) Confirm Administered Dose 18 gm .ROUTE .STK-MED ONE Stop: 10/09/20 22:16 Last Admin: 10/09/20 22:21 Dose: Not Given Documented by: Dexamethasone (Decadron) 10 mg IVPUSH ONETIME ONE Stop: 10/09/20 22:32 Last Admin: 10/09/20 22:54 Dose: 10 mg Documented by: Furosemide (Lasix) 20 mg IVPUSH NOW ONE Stop: 10/12/20 09:45 Last Admin: 10/12/20 11:38 Dose: 20 mg Documented by: Furosemide (Lasix) 20 mg IVPUSH NOW ONE Stop: 10/13/20 16:04 Remdesivir 200 mg/ Sodium (Chloride) 250 mls @ 250 mls/hr IV ONETIME ONE Stop: 10/09/20 22:34 Last Admin: 10/09/20 22:54 Dose: 250 mls/hr Documented by: Remdesivir 100 mg/ Sodium (Chloride) 100 mls @ 100 mls/hr IV Q24H [facility]1983 Stop: 10/13/20 23:59 Last Admin: 10/10/20 22:32 Dose: 100 mls/hr Documented by: Remdesivir 100 mg/ Sodium (Chloride) 100 mls @ 100 mls/hr IV Q24H [facility]1983 Stop: 10/14/20 13:33 Potassium Chloride (Klor-Con M20) 40 meq PO DAILY [facility] Potassium Chloride (Klor-Con M20) 40 meq PO ONETIME ONE Stop: 10/11/20 09:01 Last Admin: 10/11/20 08:59 Dose: 40 meq Documented by: Sodium Phosphate (Neutra-Phos) 250 mg PO ONETIME ONE Stop: 10/10/20 00:54 Last Admin: 10/10/20 01:28 Dose: 250 mg Documented by: - Exam Quality Assessment: Reports: Supplemental Oxygen General: Reports: Alert, Oriented Lungs: Reports: Clear to Auscultation, Decreased Breath Sounds (low inspiratoiry effort) Cardiovascular: Reports: Regular Rate, Regular Rhythm GI/Abdominal Exam: Normal Bowel Sounds, Soft, Non-Tender Extremities: No Pedal Edema Psy/Mental Status: Reports: Alert, Normal Affect
== END 2020-10-13 17:35 | disposition home or self-care (01) | DRG 177 ==
LOC: MW.ED 21:57 → MW.ICU 22:50 → MW.MS 10-13 11:59
PROVIDERS: ADMIT Student in an Organized Health Care Education/Training Program; ATTEND Student in an Organized Health Care Education/Training Program
PROC: XW033E5 Introduction of Remdesivir Anti-infective into Peripheral Vein, Percutaneous Approach, New Technology Group 5 (ICD-10-PCS; principal; 2020-10-09)
PROC: XW13325 Transfusion of Convalescent Plasma (Nonautologous) into Peripheral Vein, Percutaneous Approach, New Technology Group 5 (ICD-10-PCS; 2020-10-09)
PROC: 5A0945A Assistance with Respiratory Ventilation, 24-96 Consecutive Hours, High Flow/Velocity Cannula (ICD-10-PCS; 2020-10-09)
DX: U07.1 COVID-19 (principal); J12.89 Other viral pneumonia; J96.01 Acute respiratory failure with hypoxia; Z79.899 Other long term (current) drug therapy
CPT/HCPCS: 36415; 36430; 71045; 71045-26; 80053; 82728; 83615; 83735; 84100; 85025; 85379; 86140; 86900; 86901; 94640; 99283; 99285-25; A9270-GY; J1100; J1650; J1940; J1956; J3535-GY; J7050; J7620-GY; J8540; P9017